=== PATIENT | female | born 1970 | race Caucasian/White ===

== ENCOUNTER 2023-05-09 07:31 | Outpatient (AMB) | payer BC, SELFPAY ==
--- NOTE | 2023-05-09 07:35 | A.OFFPC_ITS ---
Vital Signs 05/09/23 07:39 Height 5 ft 4 in Weight 136 lb BMI 23.3 BP 118/70 Blood Pressure Location Rt brachial Position Sitting Pulse 80 Pulse Source Pulse Oximeter Pulse Oximetry (%) 99 Oxygen Delivery Method Room Air Intake Visit Reasons: New patient-requesting physical Intake Note: pt is here for new patient appointment, requesting physical Harness Builder Required: No Accompanied by: Self / Same As Patient Allergies No Known Allergies Allergy (Verified 05/09/23 07:39) Medication List - Last Reconciled 05/09/23 by Mary Ann Lynch MD diosmin 1,000 mg PO Tobacco use date assessed: 05/09/23 Dental Screening Dental Screen Date: 05/09/23 Did you have a dental visit in the last 12 months?: Yes Did you have a dental problem in the last 6 months where you did not have access to dental care?: No Was dental information given to patient?: Patient has dentist HPI New patient-requesting physical HPI Details Pt presents for PE. 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 1. Little interest or pleasure in doing things: not at all 2. Feeling down, depressed, or hopeless: not at all 3. Trouble falling or staying asleep, or sleeping too much: not at all 4. Feeling tired or having little energy: not at all 5. Poor appetite or overeating: not at all 6. Feeling bad about yourself - or that you are a failure or have let yourself or your family down: not at all 7. Trouble concentrating on things, such as reading the newspaper or watching television: not at all 8. Moving or speaking so slowly that other people could have noticed. Or the opposite - being so fidgety or restless that you have been moving around a lot more than usual: not at all 9. Thoughts that you would be better off or of hurting yourself in some way: not at all Total score: 0 Depression Screening Interpretation: Negative Source: Developed by Drs. Triston Etienne, Kirk Betancourt and colleagues, with an educational chris from [employer]. Thrive Questionnaire Date Thrive assessed: 05/09/23 I am a: Patient What is your living situation today?: I have a steady place to live Within the past 12 months, did the food you bought not last and you didn't have the money to get more?: Never true Within the past 12 months, did you worry whether your food would run out before you got money to buy more?: Never true Do you have trouble paying for medicines?: No Do you have trouble getting transportation to medical appointments?: No Do you have trouble paying your heating and electricity bill?: No Do you have trouble taking care of your child, family member or friend?: No Do you have trouble with day-to-day activities such as bathing, preparing meals, shopping, managing finances, etc.?: No Are you currently unemployed and looking for a job?: No Are you interested in more education?: No Please select the resources that you would like help with: None Currently or been in a relationship where the following occur: no concerns reported CHLOÉ-7 AMB Questionnaire CHLOÉ-7 Date CHLOÉ - 7 assessed: 05/09/23 Source: Developed by Drs. Triston Etienne, Kirk Betancourt and colleagues, with an educational chris from [employer]. Review of Systems Const All systems reviewed & are unremarkable except as noted in HPI and below Reports no additional complaints ENT Reports no additional complaints Resp Reports no additional complaints GI Reports no additional complaints Reports no additional complaints Musc Reports no additional complaints Skin/Breast Reports system reviewed and no additional complaints, except as documented Physical exam (Primary Care) Vital Signs: Last Vital Signs Pulse 80 05/09/23 07:39 BP 118/70 05/09/23 07:39 Pulse Ox 99 05/09/23 07:39 Oxygen Delivery Method Room Air 05/09/23 07:39 BMI result Body Mass Index 23.3 Tobacco/Smoking Status: Tobacco use Status Tobacco use date assessed 05/09/23 05/09/23 07:44 Patient Tobacco Use Status Current everyday Tobacco 05/09/23 07:44 e-Cigarette/Vaping Use Never Used 05/09/23 07:44 Depression Screening Interpretation: Negative Thrive Assessment: Date of Thrive Assessment Date Thrive assessed 05/09/23 05/09/23 07:46 Currently or been in a relationship where the following occur: no concerns reported Const General: no acute distress HENMT Head: Yes normal to inspection Ears: hearing grossly normal bilaterally General nose exam: Normal external nose present Face and sinus: Yes normal facial exam Throat: Yes posterior oropharynx normal Eyes General: appearance normal, both eyes and all related structures Neck Neck: Yes no lymphadenopathy and Yes supple Resp Effort & Inspection: normal respiratory effort Auscultation: clear to auscultation bilaterally Cardio Rhythm: regular rhythm Heart sounds: S1 normal heart sound present and S2 normal heart sound present GI Inspection: Yes normal to inspection Palpation (GI): Soft to palpation Percussion: Yes normal to percussion Auscultation: normal bowel sounds External Female Exam: normal external appearance Speculum Exam - Vagina: normal appearance of the vagina Speculum Exam - Cervix: normal appearance of the cervix Bimanual exam- vagina & uterus: normal bimanual exam Assessment and Plan Assessment & Plan (1) Annual physical exam: Comment: 08/26 PPD, TOBACCO QUITTING DISCUSSED WITH THE PATIENT0 Code(s): Z00.00 - Encounter for general adult medical examination without abnormal findings Plan: Avoid NSAID regular physical activity discussed with the patient . for chronic lower extremity edema and heaviness due to venous insufficiency patient will try furosemide 20 mg as needed. She was advised to follow low sodium diet and wear compression knee-highs. Mammogram will be scheduled Pap smear was done today patient will be referred to GI for colonoscopy. She will have a fasting blood work today (2) Tobacco dependence: Code(s): F17.200 - Nicotine dependence, unspecified, uncomplicated Plan: Tobacco quitting discussed with the pt Orders: Orders TSH reflex Free T4 Today Z00.00 - Encounter for general adult medical examination without abnormal findings IRON PROFILE Today Z00.00 - Encounter for general adult medical examination without abnormal findings MM screening mammo BI Today Z00.00 - Encounter for general adult medical examination without abnormal findings, Z12.31 - Encounter for screening mammogram for malignant neoplasm of breast Comprehensive [place]. Panel Fast Today Z00.00 - Encounter for general adult medical examination without abnormal findings Complete Blood Count Auto Diff Today Z00.00 - Encounter for general adult medical examination without abnormal findings Lipid Panel Today Z00.00 - Encounter for general adult medical examination without abnormal findings Pap Smear Today Z00.00 - Encounter for general adult medical examination without abnormal findings Referrals Gastroenterology Referral F17.200 - Nicotine dependence, unspecified, uncomplicated, Z00.00 - Encounter for general adult medical examination without abnormal findings Medications: New furosemide (Lasix) 20 mg PO Q OTHER DAY 20 tabs 3RF Coding Level of Care Code New Pt Prev Care 40-64y(82336) Diagnoses Annual physical exam Z00.00 Tobacco dependence F17.200
[2023-05-09 07:39] VITALS: BP 118/70; PULSE 80; O2SAT 99; BMI 23.3
== END 2023-05-09 08:57 | disposition home or self-care (01) ==
PROVIDERS: Visit Provider Internal Medicine
DX: Z00.00 Encounter for general adult medical examination without abnormal findings (principal); F17.200 Nicotine dependence, unspecified, uncomplicated
CPT/HCPCS: 99386

== ENCOUNTER 2023-05-09 08:36 | Outpatient (REF) | payer BC, SELFPAY ==
[2023-05-14 07:28] LABS: HPV mRNA E6/E7 Not Detected (Not Detected)
== END 2023-05-09 08:37 | disposition home or self-care (01) ==
LOC: HO.LNP 08:36
PROVIDERS: Visit Provider Internal Medicine
DX: Z12.4 Encounter for screening for malignant neoplasm of cervix (principal); Z11.51 Encounter for screening for human papillomavirus (HPV)
CPT/HCPCS: 87624; 88142

== ENCOUNTER 2023-05-09 08:39 | Outpatient (REF) | payer BC, SELFPAY ==
[2023-05-09 11:18] LABS: MANUAL DIFF FLAG NO
[2023-05-09 11:39] LABS: Basophils Percent Auto 0.3 % (0-2); Eosinophils Absolute Auto 0.1 X10*3/uL (0.0-0.4); Eosinophils Percent Auto 1.1 % (0-4); Hematocrit 42.7 % (37.0-47.0); Hemoglobin 14.1 g/dl (12.0-16.0); Imm Gran Abs Auto 0.03 X10*3/uL (0.00-0.03); Imm Gran Pct Auto 0.4 % (0.0-0.4); Lymphocytes Absolute Auto 2.1 X10*3/uL (1.2-4.9); Lymphocytes Percent Auto 29.6 % (20-40); Mean Corpuscular Hemoglobin 32.9 pg (27.0-33.0); Mean Corpuscular Volume 99.5 fL (80.0-98.0); Mean Platelet Volume 11.1 fL (9.4-12.3); Monocytes Absolute Auto 0.5 X10*3/uL (0.1-1.2); Monocytes Percent Auto 6.8 % (2-11); Neutrophils Absolute Auto 4.4 x10*3/uL (2.0-8.3); Neutrophils Percent Auto 61.8 % (45-73); Platelet Count 285 X10*3/uL (160-400); Red Blood Count 4.29 X10*6/uL (4.20-5.50); Red Cell Distribution Width 12.4 % (11.0-16.0); White Blood Count 7.1 X10*3/uL (4.8-10.8)
[2023-05-09 14:20] LABS: Alanine Aminotransferase 13 U/L (0-31); Albumin Level 4.1 g/dL (3.5-5.0); Alkaline Phosphatase 78 U/L (39-117); Anion Gap 11 (12-20); Aspartate Amino Transferase 15 U/L (5-31); Bilirubin Total 0.2 mg/dL (0.0-1.0); Blood Urea Nitrogen 9 mg/dL (9-16); Calcium 9.7 mg/dL (8.4-10.2); Carbon Dioxide 26 mmol/L (22-29); Chloride 107 mmol/L (96-108); Cholesterol 185 mg/dL (<200); Estimated Glomerular Filt Rate > 60; Glucose Fasting 86 mg/dL (60-99); HDL Cholesterol 40 mg/dL (>40); Iron 49 mcg/dL (30-160); LDL Cholesterol Calculated 104 mg/dL (<100); Percent Iron Saturation 16 % (15-50); Potassium 4.7 mmol/L (3.3-5.1); Sodium 139 mmol/L (135-145); Total Iron Binding Capacity 300 mcg/dL (228-428); Total Protein 7.1 g/dL (6.5-8.0); Triglycerides 207 mg/dL (<150); Unsaturated Iron Binding 251 ug/dL
[2023-05-09 14:22] LABS: TSH reflex Free T4 1.46 uIU/mL (0.32-4.0)
== END 2023-05-09 08:40 | disposition home or self-care (01) ==
LOC: HO.HMGCLDS 08:39
PROVIDERS: PCP Internal Medicine; Visit Provider Internal Medicine
DX: Z00.00 Encounter for general adult medical examination without abnormal findings (principal)
CPT/HCPCS: 36415; 80053; 80061; 83540; 84443; 85025

== ENCOUNTER 2023-05-19 16:18 | Outpatient (REF) | payer BC, SELFPAY | END 2023-05-19 16:19 | disposition home or self-care (01) | LOC: HO.MAMMO 16:18 | PROVIDERS: PCP Internal Medicine; Visit Provider Internal Medicine | DX: Z12.31 Encounter for screening mammogram for malignant neoplasm of breast (principal) | CPT/HCPCS: 77063; 77067 ==

== ENCOUNTER → 2023-05-19 16:30 | Outpatient (BNV) | payer BC, SELFPAY | PROVIDERS: PCP Internal Medicine; Visit Provider Radiology Diagnostic Radiology | DX: Z12.31 Encounter for screening mammogram for malignant neoplasm of breast (principal) | CPT/HCPCS: 77063; 77067 ==

== ENCOUNTER → 2023-07-15 15:46 | Outpatient (BNVA) | payer BC, SELFPAY | PROVIDERS: PCP Internal Medicine; Visit Provider Nurse Practitioner Family ==

== ENCOUNTER → 2023-07-15 15:47 | Outpatient (AMB) | payer BC, SELFPAY ==
--- NOTE | 2023-07-15 15:58 | MHC.OFFVIS ---
Intake Vital Signs 07/15/23 16:02 Height 5 ft 4 in Weight 135 lb BMI 23.2 BP 116/67 Blood Pressure Location Lt brachial Position Sitting Pulse 79 Intake Visit Reasons: Colonoscopy Screening Intake Note: Patient presents to in office visit to in office visit today as a new patient for colonoscopy screening. CC: Patient reports she does not have BMs every day but she takes a laxative every Friday to empty her bowels. Patient also reports having a hemorrhoids since she gave her child. Denies other GI symptoms today. Allergies No Known Allergies Allergy (Verified 07/15/23 16:09) HPI Colonoscopy Screening HPI Details 52 year old? female here today for pre colonoscopy screening.? Patient was sent to us by her PCP.? ? Patient denies any gastrointestinal symptoms in the past or at present.? However patient does admit to have trouble with hemorrhoids and occasionally has blood after having a bowel movement. Patient reports that she occasionally will be constipated. Takes laxative on Friday to help her empty completely. Patient is on diosmin daily, should stop this as it can have affect on blood clotting. Patient is not on any other anticoagulate a beatty medication. Currently any using fluoroscopy might every other day to help with bilateral lower extremity edema. Denies any personal or family history of gastrointestinal disease, colon polyps, or cancer.? Denies history of difficulty with sedation or anesthesia in the past.? Negative for history of sleep apnea.? Denies any history of cardiac, renal, pulmonary, or hepatic disease.?? No history of infectious? diseases like hepatitis A, B, C, HIV or tuberculosis.? [facility] Surgical History History of bunionectomy Family History Father High blood pressure Constipation Mother Thyroid condition Maternal Uncle Lung cancer Maternal Aunt Cancer Social History Housing: House Alcohol intake: current Alcohol intake frequency: a few times a week Alcohol type: beer and wine Patient Tobacco Use Status: Current everyday Tobacco user Cigarettes Per Day: 10 e-Cigarette/Vaping Use: Never Used service: No Current occupational status: employed Current occupation: [employer] in [employer] Cognitive needs: No Hearing needs: No Vision needs: Yes Review of Systems Const Denies weight gain and Denies weight loss ENT Reports no additional complaints, Denies dysphagia and Denies odynophagia Card Reports no additional complaints Resp Reports no additional complaints GI Denies abdominal pain, Denies belching, Denies melena, Denies bloating, Reports hematochezia (Occasional after bowel movement), Reports constipation (Occasional), Denies dysphagia, Denies excessive flatus, Denies dyspepsia, Denies heartburn, Denies diarrhea, Denies loose stools, Denies nausea, Denies odynophagia and Denies vomiting Reports no additional complaints Musc Reports no additional complaints Neuro Reports no additional complaints Psych Reports no additional complaints Endo Reports no additional complaints Physical Exam Vital Signs: Last Vital Signs Pulse 79 07/15/23 16:02 BP 116/67 07/15/23 16:02 BMI result Body Mass Index 23.2 Const General: healthy appearing, no acute distress and well developed Nutritional Appearance: well nourished Orientation/consciousness: patient oriented x3 HEENT Head: Yes normal to inspection, Yes normocephalic and Yes atraumatic Face and sinus: Yes normal facial exam Mouth: Normal oral and palatal mucosa present Throat: Yes posterior oropharynx normal, Yes tonsils normal and Yes uvula midline Eyes General: appearance normal, both eyes and all related structures Neck Neck: Yes normal visual inspection, Yes full ROM and Yes trachea midline Thyroid: Thyroid normal Resp Effort & Inspection: normal respiratory effort, able to speak in complete sentences, no tracheal deviation and symmetric chest movement Auscultation: clear to auscultation bilaterally Cardio Rate: regular rate GI Inspection: Yes normal to inspection and No distended Palpation (GI): Soft to palpation, not firm, nontender and No hepatosplenomegaly present Auscultation: normal bowel sounds General: Yes no CVA tenderness Back/Spine/Pelvis Back: no CVA tenderness Skin General skin exam: elasticity normal, turgor normal and dry skin Neuro General: patient oriented x3 Psych Appearance: grossly normal Mental Status: mental status grossly normal Affect: normal affect Assessment & Plan Assessment & Plan (1) Bilateral lower extremity edema: Code(s): R60.0 - Localized edema (2) Screen for colon cancer: Code(s): Z12.11 - Encounter for screening for malignant neoplasm of colon (3) Hemorrhoid: Code(s): K64.9 - Unspecified hemorrhoids Qualifiers: Hemorrhoid type: unspecified Qualified Code(s): K64.9 - Unspecified hemorrhoids Plan Patient denies any GI, cardiac or respiratory symptoms.? Occasional trouble with her hemorrhoids diagnosed when she was . Will send script for Colace. Patient was encouraged to do Sitz baths Patient denies any other GI symptoms. Denies any cardiac or respiratory symptoms.? Denies any issues with anesthesia in the past.? Denies any history of sleep apnea.? No history infectious diseases in the past or present.? Not on any anticoagulation therapy, however patient is taking diosmin daily, can affect blood clotting and patient should stop it for 1 week before going for the procedure due to risk of bleeding. No family or personal history of colon cancer or polyps.? Patient denies melena, unintentional weight loss or ribbon like stools.? Discussed at length the pre-procedure,? prep, diet & medications as well as what to expect prior, during and after the procedure.?? Stressed the importance of good bowel prep.? Recommended the use of Vaseline or Calmoseptine OTC & baby wipes with bowel movements to promote comfort.? ?Patient verbalizes understanding and agrees to plan of care.? She was given the opportunity to ask questions and all questions answered. Orders: Referrals Vascular Surgery Referral R60.0 - Localized edema Medications: New docusate sodium 200 mg (2 x 100 mg) PO BEDTIME 180 caps 3RF K59.00 - Constipation, unspecified polyethylene glycol 3350 (Miralax) As directed by gastroenterology department at [facility] 238 grams PO ONCE 238 grams 0RF Z12.11 - Encounter for screening for malignant neoplasm of colon bisacodyl (Dulcolax (bisacodyl)) 10 mg (2 x 5 mg) PO BEDTIME 180 tabs 2RF Coding Level of Care Code New Pt Level 3 (17321) Diagnoses Bilateral lower extremity edema R60.0 Screen for colon cancer Z12.11 Hemorrhoids, unspecified hemorrhoid type K64.9 Hemorrhoid type: unspecified Time Spent (min) 40 Comment 30 minutes spent with patient and additional 10 minutes spent reviewing her records
[2023-07-15 16:02] VITALS: BP 116/67; PULSE 79; BMI 23.2
== END ==
PROVIDERS: PCP Internal Medicine; Visit Provider Nurse Practitioner Family
DX: R60.0 Localized edema (principal); Z12.11 Encounter for screening for malignant neoplasm of colon; K64.9 Unspecified hemorrhoids
CPT/HCPCS: 99203

== ENCOUNTER 2023-09-25 15:20 | Outpatient (AMB) | payer BC, SELFPAY ==
--- NOTE | 2023-09-25 15:22 | A.OFFVIS_ITS ---
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 Believes it may have been done at [facility]. 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 Complaints include pain over varicosities, swelling of lower extremities, cramping, fatigue, and heaviness of the lower extremities. 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 It is noted more so in right leg. Patient notes prior right lower extremity vein ablation done nearly 20 years ago. Patient denies any history of DVT/ PE. Patient denies any history of phlebitis. Trial of compression includes - [id number] They now present for vascular evaluation regarding their varicose veins. 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[place] Cognitive needs: No Hearing needs: No Vision needs: Yes Review of Systems Const Reports as per HPI ENT Reports no additional complaints Card Denies chest pain, Denies chest pain at rest and Denies chest pain with activity Resp Denies chest congestion and Denies cough GI Reports no additional complaints Musc Details: pain over varicosities, aching of lower extremities, swelling, cramping, heaviness and tiredness, itching Denies abnormal gait Skin/Breast Reports pruritus and Denies wounds Neuro Reports no additional complaints and Denies abnormal gait Psych Denies no additional complaints Physical Exam Vital Signs: BMI result Body Mass Index 23.2 Const General: cooperative, healthy appearing and comfortable Orientation/consciousness: oriented to person, oriented to place and oriented to time Neck Carotids: no bruits Chest Chest palpation & inspection: normal inspection of the chest and normal palpation of entire chest wall Resp Effort & Inspection: normal respiratory effort and able to speak in complete sentences Cardio Rate: regular rate Heart sounds: S1 normal heart sound present and S2 normal heart sound present Peripheral pulses: Peripheral pulses 2+ throughout GI Inspection: Yes normal to inspection Skin Other: +2 edema, right leg CEAP Classification C4 - skin color changes Ep - Etiology Primary As - superficial veins P - reflux General skin exam: dry skin Neuro General: oriented to person, oriented to place and oriented to time Extrem Right lower extremity: full ROM, normal capillary refill and edema Left lower extremity: full ROM, normal capillary refill and edema Psych Mental Status: mental status grossly normal Assessment & Plan Assessment & Plan (1) Varicose veins of right lower extremity with inflammation: Code(s): I83.11 - Varicose veins of right lower extremity with inflammation Plan: In short, the patient has evidence of venous insufficiency. I have discussed the pathophysiology with the patient. In addition I have provided informational material regarding venous disease to the patient. We have discussed conservative measures including compression, elevation, and exercise. I have also provided a handout regarding appropriate use of compression stockings and where to purchase good compression stockings as well. I have taken the liberty of ordering venous insufficiency testing with the patient. They will follow up with me after testing. The patient had an opportunity to ask questions regarding the treatment plan. All questions were answered. Imaging studies, laboratory studies and physical exam results were discussed and reviewed in detail. No major barriers to understanding were identified. The patient expressed understanding and agreement with the above treatment plan. The patient is aware they should contact our office by phone for worsening of the current condition or the appearance of new symptoms. Thank you for allowing me to participate in the [facility] care of this patient. If you have any questions or concerns regarding the treatment for the above condition please do not hesitate to contact me. The office telephone contact is [phone]. This note is constructed using voice recognition software. While every effort has been made to ensure accuracy, director on air errors may have been included. Thank you for allowing me to participate in the care of your patient. Yours sincerely, Ozzy Thomas MD, FACS, R.P.V.I. Orders: Orders US venous insuf bilat 1 Week I83.11 - Varicose veins of right lower extremity with inflammation Coding Level of Care Code New Pt Level 4 (72852) Diagnoses Varicose veins of right lower extremity with inflammation I83.11
[2023-09-25 15:23] VITALS: BMI 23.2
== END 2023-09-25 16:07 | disposition home or self-care (01) ==
PROVIDERS: PCP Internal Medicine; Visit Provider Surgery Vascular Surgery
DX: I83.11 Varicose veins of right lower extremity with inflammation (principal)
CPT/HCPCS: 99203

== ENCOUNTER → 2023-09-25 15:20 | Outpatient (BNVA) | payer BC, SELFPAY | PROVIDERS: PCP Internal Medicine; Visit Provider Surgery Vascular Surgery ==

== ENCOUNTER 2023-10-06 12:57 | Outpatient (REF) | payer BC, SELFPAY ==
--- NOTE | ~2023-10-06 | US_ITS ---
EXAMINATION: US LOWER EXTREMITY VENOUS (REFLUX EXAM), BILATERAL CLINICAL INDICATION: Varicose veins of the right lower extremity. Right great saphenous vein ablation over 20 years ago COMPARISON: None. TECHNIQUE: Color flow triplex imaging and compression Doppler was performed to evaluate both the deep and the superficial systems bilaterally. To evaluate the superficial system, the examination was performed in the upright position. Color-flow Doppler ultrasound and compression ultrasound were utilized. In addition, maneuvers were utilized to demonstrate reflux. FINDINGS: 1. DEEP VENOUS ULTRASOUND OF THE RIGHT LOWER EXTREMITY: Common Femoral Vein: Compressible, normal respiratory variation and augmented flow. Femoral Vein: Compressible, normal color flow and augmentation. Popliteal Vein: Compressible, normal augmentation. Deep Reflux: There is no evidence of reflux in the deep system in either the common femoral vein or the popliteal vein. There is no evidence of a Guerrero's cyst. 2. SUPERFICIAL ULTRASOUND WITH DOPPLER OF RIGHT LOWER EXTREMITY: GREAT SAPHENOUS VEIN: Saphenofemoral Junction: 0.4 cm; Reflux: 0 ms Proximal Thigh: 0.2 cm; Reflux: 0 ms Mid Thigh: Not visualized Above Knee: Not visualized At Knee: Not visualized Below Knee: 0.06 cm; Reflux: 0 ms Mid Calf: 0.3 cm; Reflux: 0 ms Ankle: 0.2 cm; Reflux: 0 ms DUPLICATED MEDIAL GREAT SAPHENOUS VEIN: Diameter: None Imaged Reflux: NA DUPLICATED LATERAL GREAT SAPHENOUS VEIN: Diameter: 0.2 cm Reflux: 0 ms SMALL SAPHENOUS VEIN: Proximal: 0.3 cm; Reflux: 0 ms Distal: 0.2 cm; Reflux: 0 ms VEIN OF GIACOMINI: None Imaged. PERFORATORS: Location: Right small saphenous vein distally Size: 0.2 cm Reflux: 0 ms Location: Right great saphenous vein proximal calf Size: 0.1 cm Reflux: 0 ms VARICOSITIES: Location: None Imaged Size: NA Reflux: NA 3. DEEP VENOUS ULTRASOUND OF THE LEFT LOWER EXTREMITY: Common Femoral Vein: Compressible, normal respiratory variation and augmented flow. Femoral Vein: Compressible, normal color flow and augmentation. Popliteal Vein: Compressible, normal augmentation. Deep Reflux: There is no evidence of reflux in the deep system in either the common femoral vein or the popliteal vein. There is no evidence of a Guerrero's cyst. 4. SUPERFICIAL ULTRASOUND WITH DOPPLER OF LEFT LOWER EXTREMITY: GREAT SAPHENOUS VEIN: Saphenofemoral Junction: 0.4 cm; Reflux: 0 ms Proximal Thigh: 0.5 cm; Reflux: 0 ms Mid Thigh: 0.2 cm; Reflux: 0 ms Above Knee: 0.2 cm; Reflux: 0 ms At Knee: 0.3 cm; Reflux: 0 ms Below Knee: 0.3 cm; Reflux: 0 ms Mid Calf: 0.2 cm; Reflux: 0 ms Ankle: 0.3 cm; Reflux: 0 ms DUPLICATED MEDIAL GREAT SAPHENOUS VEIN: Diameter: None Imaged Reflux: NA DUPLICATED LATERAL GREAT SAPHENOUS VEIN: Diameter: 0.1 Reflux: 0 ms SMALL SAPHENOUS VEIN: Proximal: 0.2 cm; Reflux: 0 ms Distal: 0.1 cm; Reflux: 0 ms VEIN OF GIACOMINI: None Imaged. PERFORATORS: Location: left great saphenous vein proximal calf Size: 0.2 cm Reflux: 0 ms VARICOSITIES: Location: None Imaged Size: NA Reflux: NA Lymph node seen in the right proximal thigh measuring 2 x 1.4 x 0.5 cm, likely reactive. US/US venous insuf bilat IMPRESSION: Right: The right great saphenous vein is not visualized from the mid-thigh to the knee. No reflux seen on the right. Left: The left great saphenous vein measures up to 0.5 cm, with no reflux.
== END 2023-10-06 12:58 | disposition home or self-care (01) ==
LOC: HO.US 12:57
PROVIDERS: PCP Internal Medicine; Visit Provider Surgery Vascular Surgery
DX: I83.11 Varicose veins of right lower extremity with inflammation (principal)
CPT/HCPCS: 93970

== ENCOUNTER 2023-11-11 15:20 | Outpatient (AMB) | payer BC, SELFPAY ==
[2023-11-11 15:26] VITALS: BMI 23.2
--- NOTE | 2023-11-11 15:26 | MHC.OFFVIS ---
Intake Vital Signs 11/11/23 15:26 Height 5 ft 4 in Weight 135 lb BMI 23.2 Intake Visit Reasons: Follow Up 10/06 US Intake Note: follow up US 10/06/23, pt states bilateral LE swelling for over 20 years and ? Hx of Right LE procedure, has heaviness and restlessness in bilat LE at night. no changes Allergies No Known Allergies Allergy (Verified 11/11/23 15:30) HPI Follow Up 10/06 US HPI Details Very pleasant 53-year-old female presents for follow-up regarding venous insufficiency. She does have swelling in her ankles. In addition she is concerned about her chronic constipation as well. Upon further discussion with her she reports at the age of 15 she had some sort of thyroid treatment with pills for approximately a year. After that she has had no other follow-up regarding this. She now presents for routine follow-up. 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[employer] Cognitive needs: No Hearing needs: No Vision needs: Yes Review of Systems Const All systems reviewed & are unremarkable except as noted in HPI and below Reports no additional complaints ENT Reports Normal hearing present Card Denies chest pain, Denies chest pain at rest, Denies chest pain with activity and Denies pedal edema Resp Denies cough GI Denies abdominal pain Musc Denies abnormal gait, Denies muscle cramps and Denies radiating pain into limb Skin/Breast Denies skin ulcer and Denies wounds Neuro Reports Normal hearing present and Denies abnormal gait Psych Reports no additional complaints Physical Exam Vital Signs: BMI result Body Mass Index 23.2 Const General: cooperative, healthy appearing and comfortable Orientation/consciousness: oriented to person, oriented to place and oriented to time HEENT Head: Yes normal to inspection Neck Neck: Yes normal visual inspection Carotids: no bruits Chest Chest palpation & inspection: normal inspection of the chest Resp Effort & Inspection: normal respiratory effort and able to speak in complete sentences Auscultation: clear to auscultation bilaterally, no crackles, no rales, no rhonchi and no wheezes Cardio Rate: regular rate Rhythm: regular rhythm Heart sounds: S1 normal heart sound present and S2 normal heart sound present Bruits: no carotid bruits Peripheral pulses: Peripheral pulses 2+ throughout GI Inspection: Yes normal to inspection Skin Wounds: no wounds Hair: normal Neuro General: oriented to person, oriented to place and oriented to time Cranial nerves: Yes CN's II-XII intact bilaterally and Yes Normal hearing present Cognition (Neuro): normal cognition Motor exam (neuro): 5/5 motor strength present throughout Extrem Other: venous exam: +2 edema General: No clubbing, No cyanosis and Yes edema Psych Appearance: grossly normal Mental Status: mental status grossly normal Speech and movement: Normal speech and movement present Results Reviewed Results Reviewed: Brief summary of venous insufficiency testing is as follows: right great saphenous vein: negative right small saphenous vein: negative right accessory vein: none present left great saphenous vein: negative left small saphenous vein: negative left accessory vein: none present Please note there is no evidence of any venous aneurysms or significant tortuosity Assessment & Plan Assessment & Plan (1) Leg swelling: Code(s): M79.89 - Other specified soft tissue disorders Plan: In short patient is negative for any significant venous insufficiency. I do believe some of this may be an element of routine swelling of age. She is quite concerned about this. It may be worthwhile to get her endocrine re-evaluation as she does have a very palpable thyroid. It does appear that her TSH from 05/09/2023 was normal at 1.46. Might be worthwhile for re-evaluation there. In addition she is scheduled for colonoscopy with GI. She will follow up with us on an as-needed basis. Thank you for allowing us to participate in her care. If there are any questions or concerns please do not hesitate to contact us. Coding Level of Care Code Est Pt Level 4 (87171) Diagnoses Leg swelling M79.89
== END 2023-11-11 16:35 | disposition home or self-care (01) ==
PROVIDERS: PCP Internal Medicine; Visit Provider Surgery Vascular Surgery
DX: M79.89 Other specified soft tissue disorders (principal)
CPT/HCPCS: 99213

== ENCOUNTER → 2023-11-11 15:20 | Outpatient (BNVA) | payer BC, SELFPAY | PROVIDERS: PCP Internal Medicine; Visit Provider Surgery Vascular Surgery ==

== ENCOUNTER 2023-11-27 07:38 | Day surgery (SDC) | payer BC, SELFPAY ==
--- NOTE | 2023-11-25 15:27 | P.CONAN_ITS ---
Documented by User: Angela Centeno NP 11/25/23 15:27 HPI - Anesthesia Eval Consult details Narrative: 53yo F for Colonoscopy [facility] Active Problems Active Problems: All Active Problems (Updated 11/11/23 @ 15:54 by Ozzy Thomas MD) Leg swelling (Acute) Varicose veins of right lower extremity with inflammation (Acute) Tobacco dependence (Acute) Annual physical exam (Acute) Past Medical History Medical History Smoker Family History Family History Father High blood pressure Constipation Mother Thyroid condition Maternal Uncle Lung cancer Maternal Aunt Cancer Surgical History Surgical History History of bunionectomy Social History Social History Housing: House Alcohol intake: current Alcohol intake frequency: a few times a week Alcohol type: beer and wine Patient Tobacco Use Status: Current everyday Tobacco user Tobacco use type: Cigarette Cigarettes Per Day: 10 Smoked in Last 30 Days: Yes e-Cigarette/Vaping Use: Never Used Patient Interested in Nicotine Replacement: No Are you DNR?: No Advance Directives: No Advance Directives Information Provided: Yes Nutrition Risks: No Nutritional Risk FDLMP: a few months ago service: No Current occupational status: employed 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[employer] Cognitive needs: No Hearing needs: No Vision needs: Yes Meds Allergies Allergy/AdvReac Type Severity Reaction Status Date / Time No Known Allergies Allergy Verified 11/27/23 07:55 Home Medications ?Medication ?Instructions ?Recorded ?Confirmed ?Last Taken ?Type diosmin 300 mg tablet 300 mg PO DAILY 07/15/23 11/27/23 Unknown History Assessment and Plan Assessment Anesthesia Assessment: Chart Reviewed Documented by User: Donald Stewart MD 11/27/23 08:29 PMF Past Medical History Medical History Smoker Family History Family History Father High blood pressure Constipation Mother Thyroid condition Maternal Uncle Lung cancer Maternal Aunt Cancer Family history of problems with anesthesia: No Surgical History Surgical History History of bunionectomy History of Problems with Anesthesia: No Social History Social History Housing: House Alcohol intake: current Alcohol intake frequency: a few times a week Alcohol type: beer and wine Patient Tobacco Use Status: Current everyday Tobacco user Tobacco use type: Cigarette Cigarettes Per Day: 10 Smoked in Last 30 Days: Yes e-Cigarette/Vaping Use: Never Used Patient Interested in Nicotine Replacement: No Are you DNR?: No Advance Directives: No Advance Directives Information Provided: Yes Nutrition Risks: No Nutritional Risk FDLMP: a few months ago service: No Current occupational status: employed 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 Discussed Final Anesthetic Review Family History of Problems with Anesthesia: No History of Problems with Anesthesia: No NPO: Yes ASA Class: II Final Preanesthetic Review: No Changes in Pt Med Stat, Meds/Allgs Chart Reviewed, Consent Obtained/Reviewed and Anes Risks/Benef Reviewed Patient Risk: Intermediate Procedure Risk: Intermediate Anesthetic Plan Anesthetic Plan: MAC: Disposition: Standard PACU
[2023-11-27 07:59] LABS: UPreg QC Valid YES; Urine Pregnancy NEGATIVE (NEGATIVE)
[2023-11-27] MEDS: Lactated Ringers 1,000 ML 100 ML IVCONT (08:02)
[2023-11-27 08:08] VITALS: BP 106/60; PULSE 82; RESP 18; TEMP 36.8; O2SAT 97; BMI 23.3
--- NOTE | 2023-11-27 08:52 | MHC.SHP ---
Pre-Procedural Eval Section A - 24 Hr Update-Section A only Date of Service: 11/27/23 Section B - Complete if H&P > 30 days Chief Complaint: Encounter for screening for malignant neoplasm of Details of Present Illness: History of bunionectomy Allergies: Allergies Allergy/AdvReac Type Severity Reaction Status Date / Time No Known Allergies Allergy Verified 11/27/23 07:55 Review of Systems Review of Systems Comment: Ten point ROS negative Exam Exam Comment: Gen appear: No acute distress HEENT: no icterus Chest: No overt resp distress Abd: soft, nontender, nondistended Psych: Stable affect, answering questions appropriately Neuro: A/Ox3 noted to move all extremities spontaneously Ext: no peripheral edema Plan Diagnosis/Plan: Unchanged I have reviewed the history and physical and performed a pertinent physical examination on my patient. No changes have occurred unless specified. Time Spent With Patient Time: Total time managing care of this patient today ____ minutes.
--- NOTE | 2023-11-27 09:04 | P.OP_ITS ---
Operative Note Operative Note Date of Service: 11/27/23 Narrative: Procedure: Colonoscopy Indication: Screening Endoscopist: Sherry Ford MD Anesthesia Provider: Helen Muñiz CRNA Anesthesia type: MAC Instrument: Olympus [id number]-[id number] Consent: Indication, risks vs benefits, and alternatives were discussed with the patient who gave written informed consent to proceed. EKG, pulse, pulse oximetry and blood pressure were monitored throughout the procedure. Please see anesthesia flowsheet. Procedure: The patient was brought to the procedure room and placed in the left lateral decubitus position. IV medications were administered by the anesthesia provider in attendance. A digital rectal exam was performed which was normal. A distal attachment cap was affixed to the tip of the scope. The colonoscope was then inserted through the anus and advanced through the colon to the cecum at 75 cm,and terminal ileum. Mucosa was carefully examined under high definition white light as the instrument was slowly withdrawn in a retrograde panoramic fashion. Retroflexion was performed in ascending colon and rectum. The procedure was not difficult. There were no immediate obvious complications. The quality of the prep was BBPS: 3+2+3 = adequate Withdrawal time 9 minutes. Limitations: No limitations. Findings: Mucosa: Normal to cecum and terminal ileum. Protruding lesions: * Small internal hemorrhoids without stigmata of recent bleeding. Impression: 1. Normal colon and terminal ileum mucosa 2. Internal hemorrhoids Recommendations: - Repeat colonoscopy in 10 years for asymptomatic colorectal screening.
[2023-11-27 09:31] VITALS: BP 103/55; PULSE 62; RESP 18; TEMP 36.2; O2SAT 99
[2023-11-27 09:46] VITALS: BP 100/64; PULSE 63; RESP 18; TEMP 36.1; O2SAT 99
== END 2023-11-27 10:59 | disposition home or self-care (01) ==
PROVIDERS: Anesthesiology; PCP Internal Medicine; Visit Provider Internal Medicine
PROC: 0DJD8ZZ Inspection of Lower Intestinal Tract, Via Natural or Artificial Opening Endoscopic (ICD-10-PCS; CPT 45378; principal; 2023-11-27 08:50)
DX: Z12.11 Encounter for screening for malignant neoplasm of colon (principal); K64.8 Other hemorrhoids
CPT/HCPCS: 45378; 81025; J2704

== ENCOUNTER → 2023-11-27 07:38 | Outpatient (BNV) | payer BC, SELFPAY | PROVIDERS: PCP Internal Medicine; Visit Provider Internal Medicine | DX: Z12.11 Encounter for screening for malignant neoplasm of colon (principal); K64.8 Other hemorrhoids | CPT/HCPCS: 45378 ==

== ENCOUNTER 2024-05-18 08:04 | Outpatient (AMB) | payer BC, SELFPAY ==
[2024-05-18 08:06] VITALS: BP 114/74; PULSE 88; O2SAT 98; BMI 24.0
--- NOTE | 2024-05-18 08:06 | A.OFFPC_ITS ---
Vital Signs 05/18/24 08:06 Height 5 ft 4 in Weight 140 lb BMI 24.0 BP 114/74 Blood Pressure Location Lt brachial Position Sitting Pulse 88 Pulse Source Pulse Oximeter Pulse Oximetry (%) 98 Oxygen Delivery Method Room Air Intake Visit Reasons: PE Intake Note: Pt is here today for PE. Pt has appt on Friday for mammogram. Allergies No Known Allergies Allergy (Verified 05/18/24 08:08) Tobacco use date assessed: 05/18/24 Dental Screening Dental Screen Date: 05/18/24 Did you have a dental visit in the last 12 months?: Yes Did you have a dental problem in the last 6 months where you did not have access to dental care?: No Was dental information given to patient?: Patient has dentist HPI PE HPI Details Patient presents for physical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 1. Little interest or pleasure in doing things: not at all 2. Feeling down, depressed, or hopeless: not at all 3. Trouble falling or staying asleep, or sleeping too much: not at all 4. Feeling tired or having little energy: not at all 5. Poor appetite or overeating: not at all 6. Feeling bad about yourself - or that you are a failure or have let yourself or your family down: not at all 7. Trouble concentrating on things, such as reading the newspaper or watching television: not at all 8. Moving or speaking so slowly that other people could have noticed. Or the opposite - being so fidgety or restless that you have been moving around a lot more than usual: not at all 9. Thoughts that you would be better off or of hurting yourself in some way: not at all Total score: 0 Depression Screening Interpretation: Negative Depression Screening Done: Yes 25006 - PHQ-9 Billing: Yes Source: Developed by Drs. Triston Etienne, Shanta Lopez, Kirk Potter and colleagues, with an educational chris from [employer]. Thrive Questionnaire Date Thrive assessed: 05/18/24 I am a: Patient What is your living situation today?: I have a steady place to live Within the past 12 months, did the food you bought not last and you didn't have the money to get more?: I choose not to answer this question Within the past 12 months, did you worry whether your food would run out before you got money to buy more?: I choose not to answer this question Do you have trouble paying for medicines?: No Do you have trouble getting transportation to medical appointments?: No Do you have trouble paying your heating and electricity bill?: I choose not to answer this question Do you have trouble taking care of your child, family member or friend?: I choose not to answer this question Do you have trouble with day-to-day activities such as bathing, preparing meals, shopping, managing finances, etc.?: No Are you currently unemployed and looking for a job?: I choose not to answer this question Are you interested in more education?: No Please select the resources that you would like help with: None Currently or been in a relationship where the following occur: I choose not to answer THRIVE Score: 0 AUDIT C Alcohol Use Questionnaire (AUDIT-C) 1. How often do you have a drink containing alcohol?: Monthly or less 2. How many drinks containing alcohol do you have on a typical day when you are drinking?: 3 or 4 3. How often do you have six or more drinks on one occasion?: Never Total Score: 2 CHLOÉ-7 AMB Questionnaire CHLOÉ-7 Date CHLOÉ - 7 assessed: 05/18/24 Feeling nervous, anxious, or on edge: 0 = Not at all Not being able to stop or control worryin = Not at all Worrying too much about different things: 0 = Not at all Trouble relaxin = Not at all Being so restless that it is hard to sit still: 0 = Not at all Becoming easily annoyed or irritable: 0 = Not at all Feeling afraid as if something awful might happen: 0 = Not at all Total CHLOÉ-7 score (0-4 normal; 5-9 mild; 10-14 moderate; 15-21 severe): 0 Source: Developed by Drs. Triston Etienne, Shanta Lopez, Kirk Potter and colleagues, with an educational chris from [employer]. CHLOÉ-7 Assessment Billing CHLOÉ-7 Assessment Tool: CHLOÉ-7 Assessment 60443 Review of Systems Const All systems reviewed & are unremarkable except as noted in HPI and below Eyes Reports no additional complaints ENT Reports no additional complaints Card Reports no additional complaints Resp Reports no additional complaints GI Reports no additional complaints Reports no additional complaints Musc Reports no additional complaints Physical exam (Primary Care) Vital Signs: Last Vital Signs Pulse 88 05/18/24 08:06 BP 114/74 05/18/24 08:06 Pulse Ox 98 05/18/24 08:06 Oxygen Delivery Method Room Air 05/18/24 08:06 BMI result Body Mass Index 24.0 Tobacco/Smoking Status: Tobacco use Status Tobacco use date assessed 05/18/24 05/18/24 08:12 Patient Tobacco Use Status Current everyday Tobacco 05/18/24 08:06 Tobacco use type Cigarette 05/18/24 08:06 e-Cigarette/Vaping Use Never Used 05/18/24 08:06 PHQ-9: PHQ-9 Score PHQ-9: Total score 0 05/18/24 08:12 Depression Screening Interpretation: Negative Thrive Assessment: Date of Thrive Assessment Date Thrive assessed 05/18/24 05/18/24 08:14 Currently or been in a relationship where the following occur: I choose not to answer Const General: no acute distress HENMT Head: Yes normal to inspection Ears: hearing grossly normal bilaterally Face and sinus: Yes normal facial exam Mouth: Normal oral and palatal mucosa present Throat: Yes posterior oropharynx normal Eyes General: appearance normal, both eyes and all related structures Neck Neck: Yes no lymphadenopathy and Yes supple Resp Effort & Inspection: normal respiratory effort Auscultation: clear to auscultation bilaterally Cardio Rhythm: regular rhythm Heart sounds: S1 normal heart sound present and S2 normal heart sound present GI Inspection: Yes normal to inspection Palpation (GI): Soft to palpation Percussion: Yes normal to percussion Auscultation: normal bowel sounds Assessment and Plan Assessment & Plan (1) Annual physical exam: Comment: 08/26 PPD, TOBACCO QUITTING DISCUSSED WITH THE PATIENT Code(s): Z00.00 - Encounter for general adult medical examination without abnormal findings Plan: Well-balanced diet regular physical activity discussed with the patient she will have a fasting blood work today. She is up-to-date with the mammogram Pap smear and colonoscopy (2) Tobacco dependence: Code(s): F17.200 - Nicotine dependence, unspecified, uncomplicated (3) Hx of colonoscopy: Comment: 11/2023 negative Code(s): Z98.890 - Other specified postprocedural states Plan: Tobacco quitting discussed with the patient (4) Normal pelvic exam: Comment: 12/2022 pap negative Code(s): Z01.419 - Encounter for gynecological examination (general) (routine) without abnormal findings (5) Hx of screening mammography: Comment: 11/2023 negative Code(s): Z92.89 - Personal history of other medical treatment Orders: Orders Comprehensive [place]. Panel Fast Today Z00.00 - Encounter for general adult me dical examination without abnormal findings Lipid Panel Today Z00.00 - Encounter for general adult medical examination without abnormal findings TSH reflex Free T4 Today Z00.00 - Encounter for general adult medical examination without abnormal findings Vitamin D 25-OH Total Today Z00.00 - Encounter for general adult medical examination without abnormal findings Complete Blood Count Auto Diff Today Z00.00 - Encounter for general adult medical examination without abnormal findings UA w Microscopic Today Z00.00 - Encounter for general adult medical examination without abnormal findings Coding Level of Care Code Est Pt Prev Care 40-64y(19312) Diagnoses Annual physical exam Z00.00 Tobacco dependence F17.200 Hx of colonoscopy Z98.890 Normal pelvic exam Z01.419 Hx of screening mammography Z92.89 Additional Codes CHLOÉ-7 Assessment Billing - CHLOÉ-7 Assessment Tool: CHLOÉ-7 Assessment 16210 ([id number])
== END 2024-05-18 08:54 | disposition home or self-care (01) ==
PROVIDERS: PCP Internal Medicine; Visit Provider Internal Medicine
DX: Z00.00 Encounter for general adult medical examination without abnormal findings (principal); F17.200 Nicotine dependence, unspecified, uncomplicated; Z98.890 Other specified postprocedural states; Z01.419 Encounter for gynecological examination (general) (routine) without abnormal findings; Z92.89 Personal history of other medical treatment

== ENCOUNTER → 2024-05-18 08:04 | Outpatient (BNVA) | payer BC, SELFPAY | PROVIDERS: PCP Internal Medicine; Visit Provider Internal Medicine | DX: Z00.00 Encounter for general adult medical examination without abnormal findings (principal) ==

== ENCOUNTER 2024-05-18 08:42 | Outpatient (REF) | payer BC, SELFPAY ==
[2024-05-18 10:15] LABS: MANUAL DIFF FLAG NO
[2024-05-18 10:18] LABS: Appearance Urine Clear; Basophils Percent Auto 0.3 % (0-2); Color Urine Yellow; Eosinophils Absolute Auto 0.1 X10*3/uL (0.0-0.4); Glucose Urine UA Negative (Negative); Hematocrit 42.7 % (37.0-47.0); Hemoglobin 14.4 g/dl (12.0-16.0); Imm Gran Abs Auto 0.02 X10*3/uL (0.00-0.03); Imm Gran Pct Auto 0.3 % (0.0-0.4); Leukocyte Esterase Urine Trace (Negative); Lymphocytes Absolute Auto 1.9 X10*3/uL (1.2-4.9); Lymphocytes Percent Auto 30.1 % (20-40); Mean Corpuscular HGB Conc 33.7 g/dl (31.0-35.0); Mean Corpuscular Hemoglobin 32.5 pg (27.0-33.0); Mean Corpuscular Volume 96.4 fL (80.0-98.0); Mean Platelet Volume 10.4 fL (9.4-12.3); Monocytes Absolute Auto 0.4 X10*3/uL (0.1-1.2); Monocytes Percent Auto 6.4 % (2-11); Neutrophils Absolute Auto 3.8 x10*3/uL (2.0-8.3); Neutrophils Percent Auto 61.9 % (45-73); Nitrite Urine Negative (Negative); PH 5.5 (5.0-9.0); Platelet Count 271 X10*3/uL (160-400); Red Blood Count 4.43 X10*6/uL (4.20-5.50); Red Cell Distribution Width 11.8 % (11.0-16.0); Specific Gravity - Urine <= 1.005 (1.005-1.025); UMIC TRIGGER UA YES; Urine Blood Negative (Negative); Urine Ketones Negative (Negative); Urine Protein Negative (Neg-Trace); White Blood Count 6.2 X10*3/uL (4.8-10.8)
[2024-05-18 10:25] LABS: Bacteria Urine Trace (None Seen); Hyaline Casts Urine 0-2 /LPF (0-2); RBC Urine 0-2 /HPF (0-2); WBC Urine 0-5 /HPF (0-5)
[2024-05-18 11:10] LABS: Alanine Aminotransferase 16 U/L (0-31); Albumin Level 4.2 g/dL (3.5-5.0); Alkaline Phosphatase 84 U/L (39-117); Anion Gap 8 (12-20); Aspartate Amino Transferase 17 U/L (5-31); Bilirubin Total 0.4 mg/dL (0.0-1.0); Blood Urea Nitrogen 16 mg/dL (9-16); Calcium 9.6 mg/dL (8.4-10.2); Carbon Dioxide 30 mmol/L (22-29); Chloride 106 mmol/L (96-108); Cholesterol 224 mg/dL (<200); Estimated Glomerular Filt Rate > 60; Glucose Fasting 93 mg/dL (60-99); HDL Cholesterol 43 mg/dL (>40); LDL Cholesterol Calculated 147 mg/dL (<100); Potassium 4.1 mmol/L (3.3-5.1); Sodium 140 mmol/L (135-145); Total Protein 7.4 g/dL (6.5-8.0); Triglycerides 173 mg/dL (<150)
[2024-05-18 11:12] LABS: TSH reflex Free T4 1.36 uIU/mL (0.32-4.0)
== END 2024-05-18 08:43 | disposition home or self-care (01) ==
LOC: HO.HMGCLDS 08:42
PROVIDERS: PCP Internal Medicine; Visit Provider Internal Medicine
DX: Z00.00 Encounter for general adult medical examination without abnormal findings (principal); F17.210 Nicotine dependence, cigarettes, uncomplicated; Z71.6 Tobacco abuse counseling
CPT/HCPCS: 36415; 80053; 80061; 81001; 82306; 84443; 85025; 96127

== ENCOUNTER 2024-05-21 07:42 | Outpatient (REF) | payer BC, SELFPAY ==
--- NOTE | ~2024-05-21 | MM_ITS ---
EXAMINATION: MM SCREENING DIGITAL BREAST TOMOSYNTHESIS, BILATERAL CLINICAL INFORMATION: Screening. Asymptomatic. No family history of breast CA and no prior surgeries reported per technologist note. COMPARISON: Mammography: 05/19/2023, 11/02/2016 TECHNIQUE: Digital breast tomosynthesis is performed in both the craniocaudal and mediolateral oblique views along with computer-aided detection (CAD). Synthesized 2D images are generated from the tomosynthesis. FINDINGS: The breasts are heterogeneously dense, which may obscure small masses (ACR BI-RADS breast composition Category c). Breast tissue is bordering an extremely dense. There is a 1 view asymmetry in the upper, posterior left breast localizing laterally on the tomographic images. Diagnostic views recommended. There is a focal asymmetry in the upper slightly inner left breast mid to posterior one third, for which diagnostic views are recommended. No suspicious findings in the right breast. MM/MM tomosynthesis screening BI IMPRESSION: 1. 1 view asymmetry in upper posterior left breast localizing laterally. Recommend diagnostic views to include 3-D spot compression views in the MLO projection, full field left mediolateral view, and a spot compression 3-D laterally exaggerated CC view if possible. Ultrasound may be required should the finding persist. 2. Focal asymmetry in the upper medial left breast, mid to posterior one third. Recommend diagnostic views to include 3-D spot compression views in the CC and MLO projections. Ultrasound may be required should the finding persists. ASSESSMENT: BI-RADS BI-RADS 0 - Incomplete: Needs additional Imaging. RECOMMENDATION: 1. Additional views of the left breast. 2. Targeted ultrasound if warranted after review of the additional views. 3. Radiology department staff will contact the patient for additional imaging. Additional Imaging required This examination should not preclude the clinical evaluation of a suspicious palpable abnormality. Electronically signed by: Jerry Hankins MD 05/24/2024 08:27 AM EDT
== END 2024-05-21 07:43 | disposition home or self-care (01) ==
LOC: HO.MAMMO 07:42
PROVIDERS: PCP Internal Medicine; Visit Provider Internal Medicine
DX: Z12.31 Encounter for screening mammogram for malignant neoplasm of breast (principal)
CPT/HCPCS: 77063; 77067

== ENCOUNTER → 2024-05-21 08:00 | Outpatient (BNV) | payer BC, SELFPAY | PROVIDERS: PCP Internal Medicine; Visit Provider Radiology Diagnostic Radiology | DX: Z12.31 Encounter for screening mammogram for malignant neoplasm of breast (principal) | CPT/HCPCS: 77063; 77067 ==

== ENCOUNTER 2024-07-08 14:00 | Outpatient (REF) | payer BC, SELFPAY ==
--- NOTE | ~2024-07-08 | MM_ITS ---
EXAMINATION: MM DIAGNOSTIC DIGITAL BREAST TOMOSYNTHESIS, LEFT US BREAST LIMITED, LEFT MAMMOGRAPHY: CLINICAL INFORMATION: Follow-up for focal asymmetry upper outer left breast middle one third. Follow-up for one view asymmetry far upper posterior left breast seen on MLO only on screening exam. COMPARISON: Screening mammography 05/21/2024, and exams 05/19/2023, 11/02/2016. TECHNIQUE: Digital left breast tomosynthesis is performed in the following views: Full field 3-D left mediolateral view, as well as 3-D spot compression left CC, left exaggerated lateral CC, and left MLO projections. Computer-aided diagnosis was used for this study. This was followed by targeted left breast ultrasound the upper outer quadrant. FINDINGS: The breasts are heterogeneously dense, which may obscure small masses (ACR BI-RADS breast composition Category c). One view asymmetry in the upper posterior left breast localizing laterally on the MLO tomographic images does not definitively persist on spot compression views and is consistent with normal overlapping fibroglandular tissues (summation artifact). In the middle depth of the upper outer left breast, there is a persistent 8 mm oval vague nodule, poorly circumscribed, with surrounding spiculation, suspicious. This will be evaluated with ultrasound. No additional suspicious findings. No abnormal axillary lymphadenopathy. ULTRASOUND: CLINICAL INFORMATION: As above, evaluate 8 mm oval vague nodule with surrounding spiculation seen upper outer left breast middle one third. COMPARISON: None relevant. TECHNIQUE: Targeted sonographic evaluation left breast was performed using a high frequency linear transducer. Attention was given to the upper outer quadrant in the region of mammographic concern. Selected archived documentation. FINDINGS: LEFT BREAST: Left breast targeted upper outer ultrasound demonstrates the presence of a poorly circumscribed, irregular, predominantly hypoechoic mixed echogenicity curvilinear lesion with mild surrounding echogenic changes, mild posterior acoustic attenuation, with a crescent shape measuring approximately 1.4 x 0.5 x 2.0 cm. This appears to most likely correlate with the mammographic focus of concern. Tissue sampling is warranted for more definitive characterization. Stereotactic left breast biopsy is recommended for definitive sampling of the mammographic index lesion. We can correlate with the ultrasound after clip placement and biopsy to ensure correlation. No abnormal lymph nodes left axilla. MM/MM tomosynthesis added views L IMPRESSION: -Indeterminant irregular spiculated mass measuring 2.0 cm in length, lentiform in shape on ultrasound, 11:00 axis left breast 7 cm from the nipple. This correlates well with the mammographic focus of concern. Recommend STEREOTACTIC GUIDED BIOPSY for definitive sampling. -No additional suspicious findings left breast. -Findings and recommendations were discussed with the patient via the technologist, who appears in understanding. OVERALL ASSESSMENT: Mammography: BI-RADS 4 - Suspicious finding Ultrasound: BI-RADS 4 - Suspicious finding RECOMMENDATION: Biopsy recommended This patient's information was entered into a reminder system with a target due date for their next mammogram. Electronically signed by: Jerry Hankins MD 07/08/2024 04:38 PM LEIGH MANN
== END 2024-07-08 14:01 | disposition home or self-care (01) ==
LOC: HO.MAMMO 14:00
PROVIDERS: PCP Internal Medicine; Visit Provider Internal Medicine
DX: N64.89 Other specified disorders of breast (principal)
CPT/HCPCS: 76642; 77061; 77065

== ENCOUNTER → 2024-07-08 14:30 | Outpatient (BNV) | payer BC, SELFPAY | PROVIDERS: PCP Internal Medicine; Visit Provider Radiology Diagnostic Radiology | DX: R92.8 Other abnormal and inconclusive findings on diagnostic imaging of breast (principal) | CPT/HCPCS: 76642; 77061; 77065 ==

== ENCOUNTER 2024-07-13 08:43 | Outpatient (AMB) | payer BC, SELFPAY ==
--- NOTE | 2024-07-13 08:59 | A.OFFVIS_ITS ---
Vital Signs 07/13/24 09:05 Height 5 ft 4 in Weight 140 lb BMI 24.0 BP 121/70 Blood Pressure Location Rt brachial Position Sitting Pulse 89 Intake Visit Reasons: (L) breast sterotactic BX 11:00 spiculated Intake Note: Patient referred for lt br stereotactic bx. Not able to feel lumps on breasts. Patient c/o: denies nipple discharge, rash, itch. No family hx of breast CA. MM& Lt br US: 07-08-2024. Padded Box Sewer Required: No Allergies No Known Allergies Allergy (Verified 07/13/24 09:04) HPI Comments Details: Patient presents for evaluation for a scheduled left stereotactic breast biopsy for a suspicious left breast lesion. Patient received annual breast exam and mammograms yearly. Her most recent 1 demonstrated a suspicious spiculated lesion at 11:00 o'clock position of the left breast. Patient was self has no breast issues or complaints. She denies any pain, discharge, mass, or skin changes. Family history negative breast cancer. Menstrual history Chart was reviewed and patient evaluated [facility] Medical History Smoker Surgical History History of bunionectomy Family History Father High blood pressure Constipation Mother Thyroid condition Maternal Uncle Lung cancer Maternal Aunt Cancer Social History Housing: House Alcohol intake: current Alcohol intake frequency: a few times a week Alcohol type: beer and wine Patient Tobacco Use Status: Current everyday Tobacco user Tobacco use type: Cigarette Cigarettes Per Day: 10 e-Cigarette/Vaping Use: Never Used service: No Current occupational status: employed 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 Chest Other: Chest breath sounds bilaterally. Breast exam demonstrates no obvious mass, discharge, adenopathy, or skin changes bilaterally. GI Other: Abdomen is soft, mildly corpulent, benign. No organomegaly Assessment & Plan Assessment & Plan (1) Left breast mass: Code(s): N63.20 - Unspecified lump in the left breast, unspecified quadrant Category: Surgical Plan: Patient was scheduled for stereotactic biopsy left breast mass for today. She will see me in 1 week's time for follow-up. All questions answered. Further interventions studies will be directed by the results of the previously mentioned procedure. Coding Level of Care Code New Pt Level 4 (61109) Diagnoses Left breast mass N63.20
[2024-07-13 09:05] VITALS: BP 121/70; PULSE 89; BMI 24.0
== END 2024-07-13 09:24 | disposition home or self-care (01) ==
PROVIDERS: PCP Internal Medicine; Visit Provider Surgery
DX: N63.20 Unspecified lump in the left breast, unspecified quadrant (principal)
CPT/HCPCS: 99204

== ENCOUNTER 2024-07-13 09:30 | Outpatient (REF) | payer BC, SELFPAY | END 2024-07-13 09:31 | disposition home or self-care (01) | LOC: HO.MAMMO 09:30 | PROVIDERS: PCP Internal Medicine; Visit Provider Surgery | DX: Z13.89 Encounter for screening for other disorder (principal) ==

== ENCOUNTER 2024-07-15 09:40 | Outpatient (REF) | payer BC, SELFPAY ==
--- NOTE | ~2024-07-15 | MM_ITS ---
EXAMINATION: STEREOTACTIC TOMOSYNTHESIS-GUIDED VACUUM-ASSISTED BREAST BIOPSY, LEFT SPECIMEN RADIOGRAPH, LEFT POST PROCEDURE DIGITAL MAMMOGRAM, LEFT CLINICAL INFORMATION: Suspicious area of architectural distortion 11:00 axis, posterior depth left breast, for stereotactic biopsy. COMPARISON: 07/08/2024, 05/21/2024, 05/19/2023, dating back to 2016. TECHNIQUE/PROCEDURE: Informed consent was obtained from the patient after discussion of the benefits, risks, and alternatives to biopsy today. Patient appeared to understand. Gave opportunity for questions. Patient signed consent form. BIOPSY TABLE: [employer] Prone Biopsy System. LESION: Area of architectural distortion 11:00 axis left breast. LOCAL ANESTHESIA: 2 mL 1% lidocaine; 7 mL 1% lidocaine with epinephrine. DERMATOTOMY: Single skin carey dermatotomy performed. NEEDLE: [employer] 9-gauge vacuum assisted core biopsy device. APPROACH: craniocaudal. TARGETING: Combination of digital breast tomosynthesis and stereotactic digital mammography used for targeting. CORES: 6. CLIP: Top hat shaped. SPECIMEN RADIOGRAPH: -Not performed. POST PROCEDURE UNILATERAL DIGITAL MAMMOGRAM: The post biopsy mammogram is performed in separate room using separate digital mammography equipment from the biopsy procedure. CC and ML views are obtained. The breasts are heterogeneously dense, which may obscure small masses (breast composition category: c). The clip marker is in accurate position. The distortion appears to have been sampled. No gross hematoma. The patient tolerated the procedure well. No immediate complications. Home instructions reviewed with the patient. Final pathology results are pending. MM/MM stereotactic biopsy LT IMPRESSION: 1. Digital tomosynthesis-guided core biopsy left breast with clip placement. 2. Post procedure mammogram shows satisfactory and accurate positioning of the biopsy clip. No complication. 3. Final pathology results pending. An addendum report will be issued. Electronically signed by: Jerry Hankins MD 07/15/2024 01:32 PM LEIGH
[2024-07-15] MEDS: Lidocaine HCl 1 % 20 ML VIAL 3 ML SUBCUT (11:11)
[2024-07-15] MEDS: Lidocaine HCl 1%/Epi 1:100,000 10 ML VIAL 16 ML SUBCUT (11:12)
[2024-07-15] MEDS: Sodium Bicarbonate 8.4% 50 MEQ/50 ML VIAL SUBCUT (11:13)
== END 2024-07-15 09:41 | disposition home or self-care (01) ==
LOC: HO.MAMMO 09:40
PROVIDERS: PCP Internal Medicine; Visit Provider Surgery
DX: N63.22 Unspecified lump in the left breast, upper inner quadrant (principal); N60.92 Unspecified benign mammary dysplasia of left breast
CPT/HCPCS: 19081; 88305; 88341; 88342; A4648; J2003; J2004

== ENCOUNTER → 2024-07-15 10:00 | Outpatient (BNV) | payer BC, SELFPAY | PROVIDERS: PCP Internal Medicine; Visit Provider Radiology Diagnostic Radiology | DX: N60.89 Other benign mammary dysplasias of unspecified breast (principal) | CPT/HCPCS: 19081; 77061; 77065 ==

== ENCOUNTER 2024-07-28 07:33 | Outpatient (AMB) | payer BC, SELFPAY ==
--- NOTE | 2024-07-28 07:37 | MHC.OFFVIS ---
Vital Signs 07/28/24 07:38 Height 5 ft 4 in Weight 140 lb BMI 24.0 BP 120/70 Blood Pressure Location Rt brachial Position Sitting Pulse 90 Intake Visit Reasons: 1 wk f u(L) breast sterotactic BX 11:00 spiculated Intake Note: Patient here to discuss Lt br st bx on 07-15-2024 results. Reports incision healing well. Patient c/o: bumpy along bx site. 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 She has minimal discomfort. Pathology is benign. 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[employer] Cognitive needs: No Hearing needs: No Vision needs: Yes Physical Exam Vital Signs: Last Vital Signs Pulse 90 07/28/24 07:38 BP 120/70 07/28/24 07:38 BMI result Body Mass Index 24.0 Chest Other: Biopsy site is healing uneventfully Assessment & Plan Assessment & Plan (1) Left breast mass: Code(s): N63.20 - Unspecified lump in the left breast, unspecified quadrant Category: Surgical (2) Status post left breast biopsy: Code(s): Z98.890 - Other specified postprocedural states Category: Medical Plan Current plan is for the patient to occasionally to monthly breast exams, and she will see me in 6 months time proceeded by postprocedure bilateral mammograms or p.r.n.. All questions answered. Coding Level of Care Code Est Pt Level 4 (83518) Diagnoses Left breast mass N63.20 Status post left breast biopsy Z98.890
[2024-07-28 07:38] VITALS: BP 120/70; PULSE 90; BMI 24.0
== END 2024-07-28 07:57 | disposition home or self-care (01) ==
PROVIDERS: PCP Internal Medicine; Visit Provider Surgery
DX: N63.20 Unspecified lump in the left breast, unspecified quadrant (principal); Z98.890 Other specified postprocedural states
CPT/HCPCS: 99214

== ENCOUNTER → 2024-07-28 07:33 | Outpatient (BNVA) | payer BC, SELFPAY | PROVIDERS: PCP Internal Medicine; Visit Provider Surgery ==

== ENCOUNTER 2024-11-10 07:39 | Outpatient (AMB) | payer BC, SELFPAY ==
--- NOTE | 2024-11-10 07:47 | MHC.OFFVIS ---
Vital Signs 11/10/24 07:50 Height 5 ft 4 in Weight 139 lb BMI 23.9 BP 129/67 Blood Pressure Location Lt brachial Position Sitting Pulse 78 Intake Visit Reasons: 3 month bx result Intake Note: Patient scheduled today's visit for 3m follow up Lt br st bx. Repots bx site healed well. Patient c/o: month ago with discomfort and burning sensation. Mammogram: 01-25-2025 [employer] Operation Required: No Accompanied by: Self / Same As Patient Allergies No Known Allergies Allergy (Verified 11/10/24 07:47) HPI Comments Details: Patient presents for follow-up status post left breast biopsy. Biopsy was were reviewed with the patient which demonstrates atypical ductal hyperplasia. We have reviewed these results and current recommendation with oncologic agreement is to perform lumpectomy. 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 Bilateral breast exam demonstrates no obvious mass, discharge, skin changes, or any periclavicular axillary or cervical adenopathy bilaterally. Biopsy site well healed roughly 11:00 o'clock left breast Assessment & Plan Assessment & Plan (1) Atypical ductal hyperplasia of left breast: Code(s): N60.92 - Unspecified benign mammary dysplasia of left breast Category: Surgical Plan Risks, benefits, alternatives of lumpectomy of atypical ductal hyperplasia left breast were reviewed with the patient and included but not limited to bleeding, infection, numbness, pain, scarring and the patient wishes to proceed. All questions answered. She will require a localizer placement beforehand by breast radiologist. Arrangements were made for this on a day which is convenient for her. Coding Level of Care Code Est Pt Level 5 (76224) Diagnoses Atypical ductal hyperplasia of left breast N60.92
[2024-11-10 07:50] VITALS: BP 129/67; PULSE 78; BMI 23.9
== END 2024-11-10 07:54 | disposition home or self-care (01) ==
LOC: HO.HGS 07:39
PROVIDERS: PCP Internal Medicine; Visit Provider Surgery
DX: N60.92 Unspecified benign mammary dysplasia of left breast (principal)
CPT/HCPCS: 99214

== ENCOUNTER → 2024-11-10 07:39 | Outpatient (BNVA) | payer BC, SELFPAY | PROVIDERS: PCP Internal Medicine; Visit Provider Surgery ==

== ENCOUNTER 2024-12-15 07:53 | Outpatient (REF) | payer BC, SELFPAY ==
--- NOTE | ~2024-12-15 | MM_ITS ---
EXAMINATION: MM MAMMOGRAM GUIDED RFID LOCALIZATION BREAST, LEFT CLINICAL INFORMATION: Left breast irritated core needle biopsy with pathology of atypical ductal hyperplasia. Here for localization COMPARISON: Priors on PACS. TECHNIQUE NEEDLE LOC: Proper informed consent is obtained from the patient after discussion of the procedure, potential risks and complications, and alternatives including declining the procedure today. Patient was given an opportunity for questions. The patient appeared to understand. The patient consented to the procedure and signed the consent form. GUIDANCE: Digital mammography. APPROACH: Cranio-caudal. TARGET: Top hat clip. ANESTHESIA: carbonated lidocaine 1%: 5 mL. LOCALIZATION SYSTEM: [employer]inder LOCallizer Wire-Free Guidance System with 12g needle applicator. RADIOFREQUENCY TAG: ID # [id number] RF Tag ID confirmed with LOCalizer Guidance System prior to placement. The skin is prepped and local anesthesia administered. The needle is positioned and RFID tag deployed. Final images demonstrate the LOCalizer RF tag to reside adjacent to the top hat clip The patient tolerated the procedure well and had no immediate complications. Dressing placed and home instructions reviewed. MM/MM RF Tag device LT IMPRESSION: -Status post left breast RFID localization. Area of asymmetry in the left low axilla only seen on previous imaging needs additional follouwp and imaging. Consider breast MRI for further evaluation. Discussed with Dr Recinos patients breast surgeon who agrees with Breast MRI at this time. Electronically signed by: Divya Ocasio DO 12/16/2024 01:00 PM EDT
[2024-12-15] MEDS: Sodium Bicarbonate 8.4% 50 MEQ/50 ML VIAL SUBCUT (08:40)
[2024-12-15] MEDS: Lidocaine HCl 1 % 20 ML VIAL 9 ML SUBCUT (08:41)
== END 2024-12-15 07:54 | disposition home or self-care (01) ==
LOC: HO.MAMMO 07:53
PROVIDERS: PCP Internal Medicine; Visit Provider Surgery
DX: N60.92 Unspecified benign mammary dysplasia of left breast (principal)
CPT/HCPCS: 19281; C1819; J2003

== ENCOUNTER → 2024-12-15 08:00 | Outpatient (BNV) | payer BC, SELFPAY | PROVIDERS: PCP Internal Medicine; Visit Provider Internal Medicine | DX: N60.82 Other benign mammary dysplasias of left breast (principal) | CPT/HCPCS: 19281 ==

== ENCOUNTER → 2024-12-20 14:49 | Outpatient (BNV) | payer BC, SELFPAY | PROVIDERS: PCP Internal Medicine; Visit Provider Internal Medicine | DX: N63.23 Unspecified lump in the left breast, lower outer quadrant (principal); N60.82 Other benign mammary dysplasias of left breast | CPT/HCPCS: 77049 ==

== ENCOUNTER 2024-12-20 14:50 | Outpatient (REF) | payer BC, SELFPAY ==
--- NOTE | ~2024-12-20 | MR_ITS ---
EXAMINATION: MR BREAST WITHOUT AND WITH CONTRAST, BILATERAL CLINICAL INFORMATION: Recently diagnosed left breast atypical ductal hyperplasia patient is scheduled for surgery. COMPARISON: Mammography and ultrasound dating back to April 2024. TECHNIQUE: MRI imaging of the breast was performed using T1-T2 and fat saturated techniques. Dynamic multiphase imaging was performed after the administration of intravenous gadolinium contrast agent. 3-D reconstruction was generated. FINDINGS: There is extreme fibroglandular breast tissue with marked background enhancement. LEFT BREAST: There is severe clip artifact in the upper central breast posterior depth from biopsy-proven atypical ductal hyperplasia this area represents the marker clip and the tag localization device. There are adjacent oval enhancing masses in the lower outer breast 3 to 4 cm from the nipple together measuring 9 x 4 mm. Series 1043 image 85/118. No other suspicious areas of enhancement allowing for the extreme signal artifact from the localizer device. No internal mammary or axillary adenopathy. RIGHT BREAST: There are 2 enhancing foci located superior breast posterior depth series 1043 image 73/118 measuring 5 mm and series 1043 image 66/118 measuring 5 mm. Otherwise there are no suspicious enhancing masses or areas of nonmass enhancement. No internal mammary or axillary adenopathy. Limited views of the chest and abdomen are unremarkable. MR/MR breast BI wo/w con IMPRESSION: Left: 1. Biopsied atypical ductal hyperplasia in the upper central left breast. Patient is scheduled for excision is under the care of a breast surgeon for further management. 2. Adjacent oval masses in the lower outer breast 3 to 4 cm from the nipple measuring up to 9 mm. Recommend MRI guided core needle biopsy at this time for confirmation. Right: 1. Two Enhancing foci posterior superior breast. Recommend six-month follow-up MRI for further evaluation of stability. ASSESSMENT: LEFT BREAST: BI-RADS 4 suspicious. Biopsy proven atypical ductal hyperplasia for which the patient is scheduled for surgery. Recommend six-month follow-up MRI after surgery for further evaluation bilateral areas of enhancement. RIGHT BREAST: BI-RADS 3 probably benign. RECOMMENDATIONS: Recommend six-month follow-up MRI after surgery of left breast ADH for further evaluation of bilateral enhancing areas. Electronically signed by: Divya Ocasio DO 12/21/2024 02:35 PM EDT
[2024-12-20] MEDS: gadobutroL 7.5 ML VIAL IVPUSH (15:56)
== END 2024-12-20 14:51 | disposition home or self-care (01) ==
LOC: HO.MRI 14:50
PROVIDERS: PCP Internal Medicine; Visit Provider Surgery
DX: N60.92 Unspecified benign mammary dysplasia of left breast (principal); R22.32 Localized swelling, mass and lump, left upper limb
CPT/HCPCS: 77049; A9585

== ENCOUNTER → 2025-01-20 08:29 | Outpatient (BNV) | payer BC, SELFPAY | PROVIDERS: PCP Internal Medicine; Visit Provider Internal Medicine | DX: D24.1 Benign neoplasm of right breast (principal); N60.22 Fibroadenosis of left breast | CPT/HCPCS: 19085; 77065 ==

== ENCOUNTER 2025-01-20 08:42 | Outpatient (REF) | payer BC, SELFPAY ==
--- NOTE | ~2025-01-20 | MR_ITS ---
EXAMINATION: MR GUIDED VACUUM-ASSISTED CORE BIOPSY BREAST, LEFT MM DIGITAL MAMMOGRAPHY POST BIOPSY, LEFT CLINICAL INFORMATION: Reason history of left breast atypical ductal hyperplasia the patient is under the care of a breast surgeon for excision and further management. Enhancing mass in the left breast lower outer quadrant on MRI.. COMPARISON: Prior imaging on PACS. TECHNIQUE/PROCEDURE: Informed consent was obtained from the patient after discussion of the benefits, risks, and alternatives to biopsy today. Patient appeared to understand. Gave opportunity for questions. Patient signed consent form. Biopsy is performed under MRI guidance using breast surface coil. Imaging is performed without and with use of Gadavist gadolinium contrast. Brighter [employer] introducer localization system is used with grid. LESION: Enhancing oval mass lower outer left breast.. LOCAL ANESTHESIA: 6 mL 1% lidocaine; 8 mL 1% lidocaine with epinephrine. NEEDLE: [employer] 9-gauge vacuum assisted core biopsy device. APPROACH: Lateral. CORES: 12. CLIP: TriMark cylinder shaped. POSTPROCEDURE UNILATERAL DIGITAL MAMMOGRAM: Mammography is performed using digital mammography in CC and MLO views. The breasts are heterogeneously dense, which may obscure small masses (ACR BI-RADS breast composition Category c). The clip marker is in position. No gross hematoma. The patient tolerated the procedure well. No immediate complications. Home instructions reviewed with the patient. Final pathology results are pending. MR/MR guided breast biopsy LT IMPRESSION: 1. Status post MRI guided vacuum-assisted core biopsy left breast with clip placement. 2. Final pathology results pending. An addendum report will be issued. Electronically signed by: Divya Ocasio DO 01/20/2025 01:33 PM EDT
[2025-01-20] MEDS: Sodium Bicarbonate 8.4% 50 MEQ in Dextrose 5 % 950 ML IV (10:38)
[2025-01-20] MEDS: gadobutroL 7.5 ML VIAL IVPUSH (10:39)
[2025-01-20] MEDS: Lidocaine HCl 1 % MPF 30 ML VIAL SUBCUT (10:41)
[2025-01-20] MEDS: Lidocaine HCl 1%/Epi 1:100,000 10 ML VIAL SUBCUT (10:42)
== END 2025-01-20 08:43 | disposition home or self-care (01) ==
LOC: HO.MRI 08:42
PROVIDERS: PCP Internal Medicine; Visit Provider Surgery
DX: N63.23 Unspecified lump in the left breast, lower outer quadrant (principal); Z85.3 Personal history of malignant neoplasm of breast
CPT/HCPCS: 19085; 77061; 77065; 88305; A4648; A9585; J2003; J2004

== ENCOUNTER 2025-02-21 14:37 | Outpatient (AMB) | payer BC, SELFPAY ==
--- NOTE | 2025-02-21 14:44 | MHC.OFFVIS ---
Vital Signs 02/21/25 14:53 Height 5 ft 4 in Weight 138 lb BMI 23.7 BP 120/61 Blood Pressure Location Lt brachial Position Sitting Pulse 73 Intake Visit Reasons: mri results Intake Note: Patient last seen by Dr. Recinos 11-10-2024. Patient here to discuss MRI 01-20-2025 results. 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 Recinos, here for follow-up for her atypical ductal hyperplasia of the left breast. She had undergone a screening mammogram last year showing this poorly circumscribed irregular bottom mentally hypoechoic curvilinear lesion at the upper mid part of the left breast measuring 1.4 x 0.5 x 2 cm. She underwent stereotactic biopsy for this and this showed atypical ductal hyperplasia. She was scheduled for lumpectomy by Dr. Recinos but the radiologist had recommended an MRI biopsy of a 2nd lesion on the same breast. She underwent this biopsy last Dec, 2024 and this turned out to be intraductal papilloma, with edematous changes without atypia. She is therefore here to schedule for a lumpectomy for the 1st lesion with the atypical ductal hyperplasia on the left breast She denies any palpable breast mass Her menarche was at the age of 13. Her 1st was the age of 29. She only had 1 . She denies any family history of breast cancer. 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[place] Cognitive needs: No Hearing needs: No Vision needs: Yes Review of Systems Const Denies chills and Denies fever(s) Card Denies chest pain, Denies dyspnea and Denies dyspnea on exertion Resp Denies cough, Denies dyspnea and Denies dyspnea on exertion GI Denies hematochezia and Denies change in bowel habits Denies hematuria Musc Denies back pain and Denies limited range of motion Neuro Denies focal weakness and Denies convulsions Psych Denies depression and Denies mood swings Physical Exam Vital Signs: Last Vital Signs Pulse 73 02/21/25 14:53 BP 120/61 02/21/25 14:53 BMI result Body Mass Index 23.7 Const General: comfortable and no acute distress Orientation/consciousness: patient oriented x3 Neck Neck: Yes no lymphadenopathy Chest Other: No palpable breast mass, no axillary lymphadenopathy Resp Auscultation: clear to auscultation bilaterally Cardio Rhythm: regular rhythm GI Palpation (GI): Soft to palpation, nontender and no guarding Neuro General: patient oriented x3 Assessment & Plan Assessment & Plan (1) Atypical ductal hyperplasia of breast: Code(s): N60.99 - Unspecified benign mammary dysplasia of unspecified breast Category: Medical Plan: In view of the atypical ductal hyperplasia on stereotactic biopsy of the he is on the upper part of the left breast, she had been recommended to undergo excision via lumpectomy with the Hologic localizer in view of the association with a high-grade lesions. I reviewed with her the technique of this procedure. I explained the risks including but not limited to bleeding, infections, hematoma, blood clots, as well as the benefits and alternatives. I explained to her what to expect postoperatively She says she understands and wants to proceed. The RF ID tag was already placed last 12/15/2024. The 2nd lesion on the left breast does not reveal any atypia so this will be followed mammographically. Coding Level of Care Code Est Pt Level 3 (21429) Diagnoses Atypical ductal hyperplasia of breast N60.99
[2025-02-21 14:53] VITALS: BP 120/61; PULSE 73; BMI 23.7
== END 2025-02-21 15:35 | disposition home or self-care (01) ==
LOC: HO.HGS 14:38
PROVIDERS: PCP Internal Medicine; Visit Provider Surgery
DX: N60.99 Unspecified benign mammary dysplasia of unspecified breast (principal)
CPT/HCPCS: 99213

== ENCOUNTER 2025-04-07 05:39 | Day surgery (SDC) | payer BC, SELFPAY ==
[2024-12-21 12:57] VITALS: BMI 24.0
--- NOTE | 2024-12-21 14:07 | P.CONAN_ITS ---
HPI - Anesthesia Eval Consult details Narrative: 54yo F for Left Breast Lumpectomy w/LOCalizer PMFSH Active Problems Active Problems: All Active Problems Mass of left axilla (Acute) Atypical ductal hyperplasia of left breast (Acute) Status post left breast biopsy (Acute) Left breast mass (Acute) Left breast mass (Acute) Hx of screening mammography (Acute) Normal pelvic exam (Acute) Hx of colonoscopy (Acute) Leg swelling (Acute) Varicose veins of right lower extremity with inflammation (Acute) Tobacco dependence (Acute) Annual physical exam (Acute) Past Medical History Medical History Smoker Family History Family History Father High blood pressure Constipation Mother Thyroid condition Maternal Uncle Lung cancer Maternal Aunt Cancer Family history of problems with anesthesia: No Surgical History Surgical History History of bunionectomy History of Problems with Anesthesia: No Social History Social History Housing: House Alcohol intake: current Alcohol intake frequency: a few times a week Alcohol type: beer and wine Patient Tobacco Use Status: Current everyday Tobacco user Tobacco use type: Cigarette Cigarettes Per Day: 10 e-Cigarette/Vaping Use: Never Used service: No Current occupational status: employed 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 Cognitive needs: No Hearing needs: No Vision needs: Yes Meds Allergies Allergy/AdvReac Type Severity Reaction Status Date / Time No Known Allergies Allergy Verified 11/10/24 07:47 Exam Height,Weight and Vital Signs: Height 5 ft 4 in Weight 63.503 kg Assessment and Plan Assessment Anesthesia Assessment: Chart Reviewed Final Anesthetic Review Family History of Problems with Anesthesia: No History of Problems with Anesthesia: No
--- NOTE | 2025-04-06 08:52 | HO.ANESPROP2 ---
Documented by User: Angela Centeno NP 04/06/25 08:53 HPI - Anesthesia Eval Consult details Narrative: 54yo F for Breast Lumpectomy w/LOCalizer PMFSH Active Problems Active Problems: All Active Problems Hyperlipidemia (Acute) Vitamin D deficiency (Acute) Atypical ductal hyperplasia of breast (Acute) Mass of left axilla (Acute) Atypical ductal hyperplasia of left breast (Acute) Status post left breast biopsy (Acute) Left breast mass (Acute) Left breast mass (Acute) Hx of screening mammography (Acute) Normal pelvic exam (Acute) Hx of colonoscopy (Acute) Leg swelling (Acute) Varicose veins of right lower extremity with inflammation (Acute) Tobacco dependence (Acute) Annual physical exam (Acute) Past Medical History Medical History Atypical ductal hyperplasia of breast Smoker Family History Family History Father High blood pressure Constipation Mother Thyroid condition Maternal Uncle Lung cancer Maternal Aunt Cancer Family history of problems with anesthesia: No Surgical History Surgical History History of bunionectomy History of Problems with Anesthesia: No Social History Social History Housing: House Alcohol intake: current Alcohol intake frequency: a few times a week Alcohol type: beer and wine Patient Tobacco Use Status: Current everyday Tobacco user Tobacco use type: Cigarette Cigarettes Per Day: 10 e-Cigarette/Vaping Use: Never Used Use of substances other than those prescribed or required for medical reasons: No Advance Directives: No Advance Directives Information Provided: Yes service: No Current occupational status: employed 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[employer] Cognitive needs: No Hearing needs: No Vision needs: Yes Meds Allergies Allergy/AdvReac Type Severity Reaction Status Date / Time No Known Allergies Allergy Verified 02/21/25 14:54 Home Medications ?Medication ?Instructions ?Recorded ?Confirmed ?Last Taken ?Type black cohosh root extract 160 mg 160 mg PO DAILY 02/21/25 02/21/25 Unknown History capsule cholecalciferol (vitamin D3) 25 25 mcg PO DAILY 02/21/25 02/21/25 Unknown History mcg (1,000 unit) capsule magnesium gluconate 27 mg 27 mg PO BID 02/21/25 02/21/25 Unknown History magnesium (500 mg) tablet (Mag-G) Exam Height,Weight and Vital Signs: Height 5 ft 4 in Weight 63.503 kg Assessment and Plan Assessment Anesthesia Assessment: Chart Reviewed Final Anesthetic Review Family History of Problems with Anesthesia: No History of Problems with Anesthesia: No Documented by User: Santos Oswald MD 04/07/25 07:10 [facility] Past Medical History Medical History Atypical ductal hyperplasia of breast Smoker Functional capacity: independent ambulation Family History Family History Father High blood pressure Constipation Mother Thyroid condition Maternal Uncle Lung cancer Maternal Aunt Cancer Surgical History Surgical History History of bunionectomy Social History Social History Housing: House Alcohol intake: current Alcohol intake frequency: a few times a week Alcohol type: beer and wine Patient Tobacco Use Status: Current everyday Tobacco user Tobacco use type: Cigarette Cigarettes Per Day: 10 e-Cigarette/Vaping Use: Never Used Use of substances other than those prescribed or required for medical reasons: No Advance Directives: No Advance Directives Information Provided: Yes service: No Current occupational status: employed 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[employer] Cognitive needs: No Hearing needs: No Vision needs: Yes Meds Allergies Allergy/AdvReac Type Severity Reaction Status Date / Time No Known Allergies Allergy Verified 02/21/25 14:54 Home Medications ?Medication ?Instructions ?Recorded ?Confirmed ?Last Taken ?Type black cohosh root extract 160 mg 160 mg PO DAILY 02/21/25 02/21/25 Unknown History capsule cholecalciferol (vitamin D3) 25 25 mcg PO DAILY 02/21/25 02/21/25 Unknown History mcg (1,000 unit) capsule magnesium gluconate 27 mg 27 mg PO BID 02/21/25 02/21/25 Unknown History magnesium (500 mg) tablet (Mag-G) Exam Exam Date and Time: 04/07/25 Airway Mallampati Class: II TM Dist: >3cm Neck ROM: Full 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 Discussed Final Anesthetic Review NPO: Yes ASA Class: II Final Preanesthetic Review: No Changes in Pt Med Stat, Meds/Allgs Chart Reviewed, Consent Obtained/Reviewed and Anes Risks/Benef Reviewed Patient Risk: Low Procedure Risk: Low Anesthetic Plan Anesthetic Plan: GA Disposition: Standard PACU
[2025-04-07] VITALS (7 sets, daily range): BP systolic 108–129; BP diastolic 62–74; PULSE 46–66; RESP 12–16; TEMP 36.1–36.2; O2SAT 97–100; BMI 23.4
--- NOTE | ~2025-04-07 | MM_ITS ---
Single left specimen radiograph demonstrates the tag and the marker clip within the specimen. Electronically signed by: Divya Ocasio DO 04/07/2025 08:03 AM EDT
[2025-04-07] MEDS: Lactated Ringers 1,000 ML 100 ML IVCONT (06:26)
[2025-04-07 06:42] LABS: UPreg QC Valid YES
--- NOTE | 2025-04-07 07:19 | MHC.SHP ---
Pre-Procedural Eval Section A - 24 Hr Update-Section A only Date of Service: 04/07/25 Section B - Complete if H&P > 30 days Chief Complaint: Unspecified benign mammary dysplasia of left breas Details of Present Illness: Atypical ductal hyperplasia, for surgical excision Relevant Family History (Specify if Yes): No Relevant Social History: None Present Medications: see Short Stay Collaborative assessment History of Previous Operations: Relevant previous surgery/procedure and date(s) Allergies: Allergies Allergy/AdvReac Type Severity Reaction Status Date / Time No Known Allergies Allergy Verified 02/21/25 14:54 Review of Systems Sugical H&P ROS: Negative: Constitution, Cardiovascular and Respiratory Exam Surgical H&P Exam: Normal: Heart, Normal: Lungs and Normal: Extremities Exam Comment: No palpable breast mass Plan I have reviewed the history and physical and performed a pertinent physical examination on my patient. No changes have occurred unless specified. Time Spent With Patient Time: Total time managing care of this patient today ____ minutes.
--- NOTE | 2025-04-07 08:04 | W.PM.OPN ---
Operative Note Operative Note Date of Service: 04/07/25 Narrative: Preop diagnosis: Atypical ductal hyperplasia left breast Postop diagnosis: The same Procedure: Lumpectomy, left breast with the Hologic localizer Surgeon: Irving Corrigan MD architectural administrative assistant: JULEE Martin The patient is a 54-year-old female with note of atypical ductal hyperplasia on the left breast on up previous biopsy. She is here for lumpectomy with Hologic localizer. She understood the technique of the planned procedure as well as the risks, benefits, and alternatives She aware that she has a 2nd lesion in the lower part of the left breast away from this area that isn't intraductal papilloma and she may benefit from incision and this as well. However, she has a follow up imaging study in 6 months for both breasts so she would like to have this imaging study goes before proceeding with a lumpectomy for the 2nd lesion She was brought to the operating room. She was placed supine under general anesthesia via laryngeal mask airway. The left breast was prepped and draped in the usual sterile fashion. A surgical time-out was done. The patient received cefazolin 2 g IV preoperatively I used the Hologic localizer to identify the area on the skin closed this to the RF ID tag. I marked this and infiltrated this with lidocaine 1%. I made an incision transversely with a blade 15 on this area. I then proceeded to divide through the full-thickness of the skin and subcutaneous fat into the breast tissue. I then used the curved Leblanc scissors to divide the breast tissue surrounding the RF ID tag. We frequently and periodically used the Hologic localizer to identify the location of the tag. We dissected circumferentially making sure that we had the tag in place. This was completely excised. A re-ray in the OR showed that both the tag in the biopsy clips were in the lumpectomy specimen. I had had marked the superior and lateral margins of the specimen with sutures for orientation. I then proceeded to observed for hemostasis. I used electrocautery for oozing areas with the lumpectomy site. There were no palpable lesions Once hemostasis was confirmed, I irrigated. I closed the breast tissue with Polysorb 3-0 simple interrupted sutures. Skin closure was achieved with Polysorb 4-0 subcuticular running sutures The incision was infiltrated with Marcaine 0.5% for postop analgesia. Dressings were applied and the procedure was completed The patient tolerated the procedure well. There were no immediate complications. Initial and final counts of sponges and instruments were correct. Estimated blood loss about 25 cc. The patient is extubated without difficulty and transferred to the recovery room with stable vital signs. I had gone down to the pathology lab to review the specimen but the staff were not around yet. Since the biopsy was benign, I decided to terminate the procedure and wait for the full path report.
== END 2025-04-07 09:43 | disposition home or self-care (01) ==
PROVIDERS: Anesthesiology; PCP Internal Medicine; Visit Provider Surgery
PROC: (CPT 19301; principal; 2025-04-07 07:30)
DX: N60.82 Other benign mammary dysplasias of left breast (principal); N62 Hypertrophy of breast; N60.22 Fibroadenosis of left breast; N60.42 Mammary duct ectasia of left breast; F17.210 Nicotine dependence, cigarettes, uncomplicated
CPT/HCPCS: 19301; 81025; 88307; J0131; J0690; J1100; J2003; J2250; J2405; J2704; J2795; J3010

== ENCOUNTER → 2025-04-07 05:39 | Outpatient (BNV) | payer BC, SELFPAY | PROVIDERS: PCP Internal Medicine; Visit Provider Surgery | DX: N60.82 Other benign mammary dysplasias of left breast (principal) | CPT/HCPCS: 19301 ==

== ENCOUNTER 2025-04-20 09:20 | Outpatient (AMB) | payer BC, SELFPAY ==
--- NOTE | 2025-04-20 09:35 | MHC.OFFVIS ---
Vital Signs 04/20/25 09:40 Weight 138 lb BP 123/71 Blood Pressure Location Rt brachial Position Sitting Pulse 73 Intake Visit Reasons: S/P Lt brst lumpectomy w/localizer Intake Note: Patient here s/p Lt breast lumpectomy w/localizer on 04-07-2025. Patient c/o: underneath incision feels bumpy. no longer taking rx pain meds. Reports incision healing well. Quality Head Required: No Accompanied by: Self / Same As Patient Allergies No Known Allergies Allergy (Verified 04/20/25 09:40) Medication List - Last Reconciled 04/20/25 by Irving Corrigan MD black cohosh root extract 160 mg PO DAILY cholecalciferol (vitamin D3) 25 mcg PO DAILY furosemide (Lasix) 20 mg PO Q OTHER DAY ibuprofen 600 mg PO Q6H PRN magnesium gluconate (Mag-G) 27 mg PO BID HPI HPI S/P Lt brst lumpectomy w/localizer: Details: She underwent left breast lumpectomy with the Hologic localizer last 04/07/2025 for atypical ductal hyperplasia. She is doing very well currently and denies any problems with her lumpectomy site. She says she does not take pain medications anymore She feels well overall. 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[place] Cognitive needs: No Hearing needs: No Vision needs: Yes Review of Systems Const Denies chills and Denies fever(s) Card Denies chest pain, Denies dyspnea and Denies dyspnea on exertion Resp Denies cough, Denies dyspnea and Denies dyspnea on exertion GI Denies hematochezia and Denies change in bowel habits Denies hematuria Musc Denies back pain and Denies limited range of motion Neuro Denies focal weakness and Denies convulsions Psych Denies depression and Denies mood swings Physical Exam Vital Signs: Last Vital Signs Pulse 73 04/20/25 09:40 BP 123/71 04/20/25 09:40 Const General: comfortable and no acute distress Chest Other: Lumpectomy site, left breast well healed, no hematoma, no evidence of infection Assessment & Plan Assessment & Plan (1) Atypical ductal hyperplasia of left breast: Code(s): N60.92 - Unspecified benign mammary dysplasia of left breast Category: Surgical Plan: Status post lumpectomy. Her final path report shows radial sclerosing lesion, moderate usual ductal hyperplasia, apocrine metaplasia duct ectasia. There was note of a small intraductal papilloma. There is no atypia or high-grade lesions. I explained to her the benign nature left final pathology. Her incision is well healed She understands that she also has a 2nd area of enhancing mass on the lower aspect of the left breast on MRI. This has been biopsied previously and this showed intraductal papilloma. I explained to her that at some point, this may need to be surgically excised as well. However, she also has enhancing foci on the right breast and a follow up MRI had been recommended for this. I am going to wait for the MRI for the right breast and decide on timing over excision for the intraductal papilloma on the left breast I will see her next month and schedule her for her follow up MRI. She understands the plan well and is comfortable with this. Coding Level of Care Code Global (49764) Diagnoses Atypical ductal hyperplasia of left breast N60.92
[2025-04-20 09:40] VITALS: BP 123/71; PULSE 73
== END 2025-04-20 09:55 | disposition home or self-care (01) ==
LOC: HO.HGS 09:21
PROVIDERS: PCP Internal Medicine; Visit Provider Surgery
DX: N60.92 Unspecified benign mammary dysplasia of left breast (principal)
CPT/HCPCS: 99024

== ENCOUNTER 2025-05-21 08:15 | Outpatient (REF) | payer BC, SELFPAY ==
--- OUTSIDE RECORDS SUMMARY | 2025-05-21 08:20 | XMS_ITS | Clinical Summary ---
Author Organization [facility] Address [address] [place] [address] [place] [id number] Phone Care Team Providers Care Child Care Provider Name Role Phone Mary Ann Lynch MD Primary Care Provider [phone] Social History Tobacco Use Types Packs/Day Years Used Date Smoking Tobacco: Never Assessed Education Answer Date Recorded Are you interested in more education? Not on sukhdeep e 05/20/2025 Are you concerned about learning? Not on file 05/20/2025 No 05/20/2025 No 05/20/2025 Digital Access Answer Date Recorded No 05/20/2025 No 05/20/2025 Reliable internet access at home? Not on file 05/20/2025 Device with a working camera? Not on file Comments Unknown Sex and Gender Information Value Date Recorded Sex Assigned at Not on file Legal Sex Female 10:43 AM EDT Gender Identity Not on file Sexual Orientation Not on file Plan of Treatment Upcoming Encounters Date Type Department Care Team (Late st Contact Info) Description 07/07/2025 4:10 PM EST Office Visit [facility] [address] [place] [address] [place] [address] Carlitos Romo MD [address] [facility], [address] [place] [address] [email or web address] Due Date Last Done Comments Adult Td,Tdap Booster 1971 LIPID PANEL 1971 DEPRESSION SCREENING 1983 SMOKING Hx and SMOKELESS TOB ACCO SCREENING 1984 HEPATITIS C SCREENING 1989 HIV ONE-TIME SCREENING (18-6 5 YEARS) 1989 PAP SMEAR 1992 MAMMOGRAM 2011 COLOGUARD 2016 COLONOSCOPY 2016 COLORECTAL CANCER SCREENING 2016 FIT TEST 2016 FOBT 2016 SIGMOIDOSCOPY 2016 VIRTUAL COLONOSCOPY 2016 PNEUMOCOCCAL VACCINES (50+ y ears) (1 of 1 - PCV) 2021 ZOSTER VACCINES (1 of 2) 2021 INFLUENZA VACCINE (#1) 2025 COVID-19 VACCINE ( - 2023-2 5 season) 2025 HEPATITIS A VACCINES Aged Out No long er eligible based on patient's age to complete this topic HIB VACCINES Aged Out No longer eligi ble based on patient's age to complete this topic MENINGOCOCCAL VACCINES (ACWY) Aged Out No longer eligible based on patient's age to complete this topic MENINGOCOCCAL VACCINES (B) Aged Out N o longer eligible based on patient's age to complete this topic Medical Devices Not on file Insurance [facility] PPO Care Teams Child Care Provider Relationship Specialty Start Date End Date Mary Ann Lynch MD [facility] [place] [address] PCP - General Internal Medicine 05/20/25 Additional Source Comments The information contained in this document represents components of the legal health record. It is not the complete legal health record.[facility]
[2025-05-21 11:10] LABS: MANUAL DIFF FLAG NO
[2025-05-21 11:16] LABS: Hematocrit 40.2 % (37.0-47.0); Hemoglobin 13.9 g/dl (12.0-16.0); Imm Gran Abs Auto 0.03 X10*3/uL (0.00-0.03); Imm Gran Pct Auto 0.3 % (0.0-0.4); Lymphocytes Absolute Auto 2.4 X10*3/uL (1.2-4.9); Mean Corpuscular HGB Conc 34.6 g/dl (31.0-35.0); Mean Corpuscular Hemoglobin 32.9 pg (27.0-33.0); Mean Corpuscular Volume 95.3 fL (80.0-98.0); NRBC Abs Auto 0.000 X10*3/uL (0.0-0.012); NRBC Pct Auto 0.0 /100WBC (0.0-0.2); Platelet Count 307 X10*3/uL (160-400); Red Blood Count 4.22 X10*6/uL (4.20-5.50); White Blood Count 8.7 X10*3/uL (4.8-10.8)
[2025-05-21 11:40] LABS: Appearance Urine Clear; Glucose Urine UA Negative (Negative); PH 7.5 (5.0-9.0); Specific Gravity - Urine 1.020 (1.005-1.025); UMIC TRIGGER UA YES
[2025-05-21 11:49] LABS: Alanine Aminotransferase 22 U/L (0-31); Albumin Level 4.0 g/dL (3.5-5.0); Alkaline Phosphatase 89 U/L (39-117); Anion Gap 11 (12-20); Aspartate Amino Transferase 27 U/L (5-31); Blood Urea Nitrogen 13 mg/dL (9-16); Calcium 9.4 mg/dL (8.4-10.2); Carbon Dioxide 28 mmol/L (22-29); Chloride 104 mmol/L (96-108); Cholesterol 205 mg/dL (<200); Estimated Glomerular Filt Rate > 60; HDL Cholesterol 41 mg/dL (>40); Potassium 4.4 mmol/L (3.3-5.1); Sodium 139 mmol/L (135-145); Total Protein 6.8 g/dL (6.5-8.0); Triglycerides 120 mg/dL (<150)
[2025-05-21 12:00] LABS: Folate 7.0 ng/mL (> or = 4.0); Vitamin B12 345 pg/mL (200-900)
== END 2025-05-21 08:16 | disposition home or self-care (01) ==
LOC: HO.HMGCLDS 08:15
PROVIDERS: PCP Internal Medicine; Visit Provider Internal Medicine
DX: Z00.00 Encounter for general adult medical examination without abnormal findings (principal); E55.9 Vitamin D deficiency, unspecified; E78.5 Hyperlipidemia, unspecified
CPT/HCPCS: 36415; 80053; 80061; 81001; 82306; 82607; 82746; 84443; 85025

== ENCOUNTER 2025-05-24 13:51 | Outpatient (AMB) | payer BC, SELFPAY ==
[2025-05-24 14:19] VITALS: BP 110/68; PULSE 97; RESP 17; TEMP 36.8; O2SAT 97; BMI 24.5
--- NOTE | 2025-05-24 14:19 | A.OFFPC_ITS ---
Vital Signs 05/24/25 14:19 Height 5 ft 4 in Weight 143 lb BMI 24.5 BP 110/68 Blood Pressure Location Lt brachial Position Sitting Respiration 17 Pulse 97 Pulse Source Pulse Oximeter Temp 98.3 F Temp Source Oral Pulse Oximetry (%) 97 Oxygen Delivery Method Room Air Intake Visit Reasons: PE Intake Note: Pt is here today for PE. Allergies No Known Allergies Allergy (Verified 04/20/25 09:40) Medication List - Last Reconciled 05/24/25 by Mary Ann Lynch MD black cohosh root extract 160 mg PO DAILY cholecalciferol (vitamin D3) 25 mcg PO DAILY furosemide (Lasix) 20 mg PO .QD ibuprofen 600 mg PO Q6H PRN magnesium gluconate (Mag-G) 27 mg PO BID varenicline tartrate (Chantix Continuing Month Box) 1 mg PO BID varenicline tartrate (Chantix Starting Month Box) PO PER PKG DIR Tobacco use date assessed: 05/24/25 Dental Screening Dental Screen Date: 05/24/25 Did you have a dental visit in the last 12 months?: Yes Did you have a dental problem in the last 6 months where you did not have access to dental care?: No Was dental information given to patient?: Patient has dentist HPI PE HPI Details Pt presents for PE. Patient complains of worsening of chronic lower extremities swelling at the end of the day. 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 She denies chest pain shortness or breath GI complains. Patient has been taking furosemide once or twice a month. 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 Surgical History (Updated 05/24/25 @ 19:13 by Mary Ann Lynch MD) Atypical ductal hyperplasia of left breast Hx of colonoscopy History of lumpectomy (~04/07/25) History of bunionectomy Family History Father High blood pressure Constipation Mother Thyroid condition Maternal Uncle Lung cancer Maternal Aunt Cancer Social History Housing: House Alcohol intake: current Alcohol intake frequency: a few times a week Alcohol type: beer and wine Patient Tobacco Use Status: Current everyday Tobacco user Tobacco use type: Cigarette Cigarettes Per Day: 10 e-Cigarette/Vaping Use: Never Used service: No Current occupational status: employed Current occupation: [employer] in [employer] Cognitive needs: No Hearing needs: No Vision needs: Yes Questionnaire PHQ-9 Over the last 2 weeks, how often have you been bothered by any of the following problems? 1. Little interest or pleasure in doing things: not at all 2. Feeling down, depressed, or hopeless: not at all 3. Trouble falling or staying asleep, or sleeping too much: not at all 4. Feeling tired or having little energy: not at all 5. Poor appetite or overeating: not at all 6. Feeling bad about yourself - or that you are a failure or have let yourself or your family down: not at all 7. Trouble concentrating on things, such as reading the newspaper or watching television: not at all 8. Moving or speaking so slowly that other people could have noticed. Or the opposite - being so fidgety or restless that you have been moving around a lot more than usual: not at all 9. Thoughts that you would be better off or of hurting yourself in some way: not at all Total score: 0 Depression Screening Interpretation: Negative Depression Screening Done: Yes Source: Developed by Drs. Triston Etienne, Shanta Lopez, Kirk Potter and colleagues, with an educational chris from [employer]. Thrive Questionnaire Date Thrive assessed: 05/24/25 I am a: Patient What is your living situation today?: I have a steady place to live Within the past 12 months, did the food you bought not last and you didn't have the money to get more?: Never true Within the past 12 months, did you worry whether your food would run out before you got money to buy more?: Never true Do you have trouble paying for medicines?: No Do you have trouble getting transportation to medical appointments?: No Do you have trouble paying your heating and electricity bill?: No Do you have trouble taking care of your child, family member or friend?: No Do you have trouble with day-to-day activities such as bathing, preparing meals, shopping, managing finances, etc.?: No Are you currently unemployed and looking for a job?: No Are you interested in more education?: I choose not to answer this question Please select the resources that you would like help with: None Currently or been in a relationship where the following occur: No concerns reported THRIVE Score: 0 AUDIT C Alcohol Use Questionnaire (AUDIT-C) 1. How often do you have a drink containing alcohol?: Monthly or less 2. How many drinks containing alcohol do you have on a typical day when you are drinking?: 3 or 4 3. How often do you have six or more drinks on one occasion?: Less than monthly Total Score: 3 CHLOÉ-7 AMB Questionnaire CHLOÉ-7 Date CHLOÉ - 7 assessed: 05/24/25 Feeling nervous, anxious, or on edge: 0 = Not at all Not being able to stop or control worryin = Not at all Worrying too much about different things: 0 = Not at all Trouble relaxin = Not at all Being so restless that it is hard to sit still: 0 = Not at all Becoming easily annoyed or irritable: 0 = Not at all Feeling afraid as if something awful might happen: 0 = Not at all Total CHLOÉ-7 score (0-4 normal; 5-9 mild; 10-14 moderate; 15-21 severe): 0 Source: Developed by Drs. Triston Etienne, Shanta Lopez, Kirk Potter and colleagues, with an educational chris from [employer]. Review of Systems Const All systems reviewed & are unremarkable except as noted in HPI and below Reports no additional complaints Eyes Reports no additional complaints ENT Reports no additional complaints Card Reports no additional complaints Resp Reports no additional complaints GI Reports no additional complaints Reports no additional complaints Physical exam (Primary Care) Vital Signs: Last Vital Signs Temp 98.3 F 05/24/25 14:19 Pulse 97 05/24/25 14:19 Resp 17 05/24/25 14:19 BP 110/68 05/24/25 14:19 Pulse Ox 97 05/24/25 14:19 Oxygen Delivery Method Room Air 05/24/25 14:19 BMI result Body Mass Index 24.5 Tobacco/Smoking Status: Tobacco use Status Tobacco use date assessed 05/24/25 05/24/25 14:26 Patient Tobacco Use Status Current everyday Tobacco 05/24/25 14:21 Tobacco use type Cigarette 05/24/25 14:21 e-Cigarette/Vaping Use Never Used 05/24/25 14:21 PHQ-9: PHQ-9 Score PHQ-9: Total score 0 05/24/25 14:43 Depression Screening Interpretation: Negative Thrive Assessment: Date of Thrive Assessment Date Thrive assessed 05/24/25 05/24/25 14:26 Currently or been in a relationship where the following occur: No concerns reported Const General: no acute distress HENMT Head: Yes normal to inspection Ears: hearing grossly normal bilaterally Face and sinus: Yes normal facial exam Throat: Yes posterior oropharynx normal Eyes General: appearance normal, both eyes and all related structures Neck Neck: Yes no lymphadenopathy and Yes supple Resp Effort & Inspection: normal respiratory effort Auscultation: clear to auscultation bilaterally Cardio Rate: regular rate Heart sounds: S1 normal heart sound present and S2 normal heart sound present GI Inspection: Yes normal to inspection Palpation (GI): Soft to palpation Percussion: Yes normal to percussion Auscultation: normal bowel sounds Extrem Other: 2+ pitting edema bilaterally Coding Level of Care Code Est Pt Prev Care 40-64y(13075) Diagnoses Hyperlipidemia E78.5 Annual physical exam Z00.00 Bilateral lower extremity edema R60.0 Tobacco dependence F17.200 Assessment & Plan Assessment & Plan (1) Hyperlipidemia: Code(s): E78.5 - Hyperlipidemia, unspecified Category: Medical Plan: Low-cholesterol diet discussed with the patient (2) Annual physical exam: Code(s): Z00.00 - Encounter for general adult medical examination without abnormal findings Category: Medical Plan: Well-balanced diet regular physical activity discussed with the patient. She is up-to-date with the mammogram colonoscopy and Pap smear (3) Bilateral lower extremity edema: Code(s): R60.0 - Localized edema Category: Medical Plan: For bilateral lower extremity edema patient will start furosemide 20 mg daily. She was advised to elevate lower extremities work compression knee-highs follow- up in 1 month (4) Tobacco dependence: Comment: 1/2 PPD x20yrs Code(s): F17.200 - Nicotine dependence, unspecified, uncomplicated Category: Medical Plan: Buccal quitting discussed with the patient. She will try Chantix Orders: Orders Basic Metabolic Panel 2 Weeks I83.11 - Varicose veins of right lower extremity with inflammation IRON PROFILE 2 Weeks I83.11 - Varicose veins of right lower extremity with inflammation Medications: New varenicline tartrate (Chantix Continuing Month Box) 1 mg PO BID 56 tabs 0RF varenicline tartrate (Chantix Starting Month Box) PO PER PKG DIR 53 ea 0RF Changed From furosemide (Lasix) 20 mg PO Q OTHER DAY 20 tabs 5RF To furosemide (Lasix) 20 mg PO .QD 90 tabs 2RF
--- OUTSIDE RECORDS SUMMARY | 2025-05-24 15:11 | XMS_ITS | Clinical Summary ---
Author Organization [facility] Address [address] [place] [address] [place] [id number] Phone Care Team Providers Care Cream Cheese Maker Name Role Phone Mary Ann Lynch MD Primary Care Provider [phone] Social History Tobacco Use Types Packs/Day Years [...] Office Visit [facility] [address] [place] [address] [place] [address] Carlitos Romo MD [address] [facility], [address] [place] [address] [email or web address] Maintenance Due Date Last Done Comments [...] topic Medical Devices Not on file Insurance [facility] PPO Care Teams Cream Cheese Maker Relationship Specialty Start Date End Date Mary Ann Lynch MD [facility] [place] [id number] PCP - General Internal Medicine 05/20/25 Additional Source Comments The information contained in this document represents components of the legal health record. It is not the complete legal health record.[facility]
== END 2025-05-24 15:03 | disposition home or self-care (01) ==
LOC: HO.HMCC 13:52
PROVIDERS: PCP Internal Medicine; Visit Provider Internal Medicine
DX: E78.5 Hyperlipidemia, unspecified (principal); Z00.00 Encounter for general adult medical examination without abnormal findings; R60.0 Localized edema; F17.200 Nicotine dependence, unspecified, uncomplicated

== ENCOUNTER 2025-05-25 15:37 | Outpatient (AMB) | payer BC, SELFPAY ==
[2025-05-25 15:38] VITALS: BP 139/72; PULSE 79; BMI 24.7
--- NOTE | 2025-05-25 15:38 | MHC.OFFVIS ---
Vital Signs 05/25/25 15:38 Height 5 ft 4 in Weight 144 lb BMI 24.7 BP 139/72 Blood Pressure Location Rt brachial Position Sitting Pulse 79 Intake Visit Reasons: 1 month S/P Lt brst lumpectomy w/localizer Intake Note: This patient presents for one month follow-up status post Lumpectomy, left breast with the Hologic localizer. Pt c/o; reports surgical site still feels stiff, reports no redness or hot to the touch sensation on the breast. 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 Setter Required: No Accompanied by: Self / Same As Patient Allergies No Known Allergies Allergy (Verified 05/25/25 15:45) Medication List - Last Reconciled 05/25/25 by Irving Corrigan MD black cohosh root extract 160 mg PO DAILY cholecalciferol (vitamin D3) 25 mcg PO DAILY furosemide (Lasix) 20 mg PO .QD ibuprofen 600 mg PO Q6H PRN magnesium gluconate (Mag-G) 27 mg PO BID varenicline tartrate (Chantix Continuing Month Box) 1 mg PO BID varenicline tartrate (Chantix Starting Month Box) PO PER PKG DIR HPI HPI 1 month S/P Lt brst lumpectomy w/localizer: Details: She had a mammogram last November 2024 showing bilateral enhancement of both the left and right breasts and a follow up MRI had been recommended in 6 months She denies any new complaints She did have lumpectomy last March, for atypical ductal hyperplasia of the left breast. There is a 2nd area of atypical ductal hyperplasia of the lower aspect of the left breast. She is supposed to have this excised as well. 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 Surgical History Atypical ductal hyperplasia of left breast Hx of colonoscopy History of lumpectomy (~04/07/25) History of bunionectomy Family History Father High blood pressure Constipation Mother Thyroid condition Maternal Uncle Lung cancer Maternal Aunt Cancer Social History Housing: House Alcohol intake: current Alcohol intake frequency: a few times a week Alcohol type: beer and wine Patient Tobacco Use Status: Current everyday Tobacco user Tobacco use type: Cigarette Cigarettes Per Day: 10 e-Cigarette/Vaping Use: Never Used service: No Current occupational status: employed 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[employer] Cognitive needs: No Hearing needs: No Vision needs: Yes Review of Systems Const Denies chills and Denies fever(s) Card Denies chest pain, Denies dyspnea and Denies dyspnea on exertion Resp Denies cough, Denies dyspnea and Denies dyspnea on exertion GI Denies hematochezia and Denies change in bowel habits Denies hematuria Musc Denies back pain and Denies limited range of motion Neuro Denies focal weakness and Denies convulsions Psych Denies depression and Denies mood swings Physical Exam Vital Signs: BMI result Body Mass Index 24.5 Const General: comfortable and no acute distress Orientation/consciousness: patient oriented x3 Neck Neck: Yes no lymphadenopathy Chest Other: Well healed scar on the upper aspect of the left breast, no palpable masses Resp Auscultation: clear to auscultation bilaterally Cardio Rhythm: regular rhythm GI Palpation (GI): Soft to palpation, nontender and no guarding Neuro General: patient oriented x3 Assessment & Plan Assessment & Plan (1) Breast calcification, right: Code(s): R92.1 - Mammographic calcification found on diagnostic imaging of breast Category: Medical Plan: She has this abnormal enhancement of both the left and the right breast seen on previous mammogram. The radiologist had recommended doing a follow up MRI. I am going to schedule this for her. I told her that at some point, we will need to proceed with excision of the area of intraductal papilloma on the lower aspect of her left breast as well. I will here again in the office after her MRI. I will see her again in the office after her MRI and discuss the next step in her care. She is comfortable with the plan. Orders: Orders MR breast BI wo/w con Today R92.1 - Mammographic calcification found on diagnostic imaging of breast, R92.8 - Other abnormal and inconclusive findings on diagnostic imaging of breast Coding Level of Care Code Est Pt Level 3 (01449) Diagnoses Breast calcification, right R92.1
== END 2025-05-25 16:00 | disposition home or self-care (01) ==
LOC: HO.HGS 15:37
PROVIDERS: PCP Internal Medicine; Visit Provider Surgery
DX: R92.1 Mammographic calcification found on diagnostic imaging of breast (principal)
CPT/HCPCS: 99213

== ENCOUNTER 2025-06-04 09:30 | Outpatient (REF) | payer BC, SELFPAY ==
--- OUTSIDE RECORDS SUMMARY | 2025-06-04 09:32 | XMS_ITS | Clinical Summary ---
Author Organization [facility] Address [address] [place] [address] [place] [phone] Phone Care Team Providers Care Health Informatics Instructor Name Role Phone Mary Ann Lynch MD Primary Care Provider [phone] Social History Tobacco Use Types Packs/Day Years [...] Office Visit [facility] [address] [place] [address] [place] [address] Carlitos Romo MD [address] [facility], [address] [place] [address] [email or web address] Maintenance Due Date Last Done Comments [...] 2021 INFLUENZA VACCINE (#1) 2025 COVID-19 VACCINE (1 - 2024-2 6 season) 2025 RSV VACCINE (1 - 1-dose 75+ series) 2046 HEPATITIS A VACCINES Aged Out No long [...] topic Medical Devices Not on file Insurance [facility] PPO BLUE CROSS OUT OF STATE PPO BLUE CROSS OUT OF STATE PPO BLUE CROSS OUT OF STATE PPO Care Teams Health Informatics Instructor Relationship Specialty Start Date End Date Mary Ann Lynch MD [address] [facility] [place] [address] PCP - General Internal Medicine 05/20/25 Additional Source Comments The information contained in this document represents components of the legal health record. It is not the complete legal health record.[facility]
[2025-06-04 11:35] LABS: Anion Gap 12 (12-20); Blood Urea Nitrogen 11 mg/dL (9-16); Calcium 9.3 mg/dL (8.4-10.2); Carbon Dioxide 25 mmol/L (22-29); Chloride 106 mmol/L (96-108); Estimated Glomerular Filt Rate > 60; Iron 153 mcg/dL (30-160); Percent Iron Saturation 44 % (15-50); Potassium 3.9 mmol/L (3.3-5.1); Sodium 139 mmol/L (135-145); Total Iron Binding Capacity 349 mcg/dL (228-428); Unsaturated Iron Binding 196 ug/dL
== END 2025-06-04 09:31 | disposition home or self-care (01) ==
LOC: HO.HMGCLDS 09:30
PROVIDERS: PCP Internal Medicine; Visit Provider Internal Medicine
DX: I83.11 Varicose veins of right lower extremity with inflammation (principal)
CPT/HCPCS: 36415; 80048; 83540

== ENCOUNTER 2025-06-23 13:28 | Outpatient (AMB) | payer BC, SELFPAY ==
--- NOTE | 2025-06-23 13:34 | MHC.PC.OV ---
Vital Signs 06/23/25 13:36 Height 5 ft 4 in Weight 142 lb BMI 24.4 BP 100/64 Blood Pressure Location Rt brachial Position Sitting Pulse 83 Pulse Source Pulse Oximeter Temp 98.2 F Temp Source Oral Pulse Oximetry (%) 97 Oxygen Delivery Method Room Air Intake Visit Reasons: 1 mo follow up Intake Note: Pt is here today for her 1mo. f/u Allergies No Known Allergies Allergy (Verified 06/23/25 13:35) Medication List - Last Reconciled 06/23/25 by Mary Ann Lynch MD black cohosh root extract 160 mg PO DAILY cholecalciferol (vitamin D3) 25 mcg PO DAILY furosemide (Lasix) 20 mg PO .QD ibuprofen 600 mg PO Q6H PRN magnesium gluconate (Mag-G) 27 mg PO BID varenicline tartrate (Chantix Continuing Month Box) 1 mg PO BID varenicline tartrate (Chantix Starting Month Box) PO PER PKG DIR Tobacco use date assessed: 06/23/25 Dental Screening Dental Screen Date: 06/23/25 Did you have a dental visit in the last 12 months?: Yes Did you have a dental problem in the last 6 months where you did not have access to dental care?: No Was dental information given to patient?: Patient has dentist HPI 1 mo follow up HPI Details Pt presents for f/u hyperlipid. Patient has been following low-cholesterol diet. Lower extremity edema improved on Lasix and patient has been wearing compression knee highs. 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 Surgical History Atypical ductal hyperplasia of left breast Hx of colonoscopy History of lumpectomy (~04/07/25) History of bunionectomy Family History Father High blood pressure Constipation Mother Thyroid condition Maternal Uncle Lung cancer Maternal Aunt Cancer Social History Housing: House Alcohol intake: current Alcohol intake frequency: a few times a week Alcohol type: beer and wine Patient Tobacco Use Status: Current everyday Tobacco user Tobacco use type: Cigarette Cigarettes Per Day: 10 e-Cigarette/Vaping Use: Never Used service: No Current occupational status: employed 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 1. Little interest or pleasure in doing things: not at all 2. Feeling down, depressed, or hopeless: not at all 3. Trouble falling or staying asleep, or sleeping too much: not at all 4. Feeling tired or having little energy: not at all 5. Poor appetite or overeating: not at all 6. Feeling bad about yourself - or that you are a failure or have let yourself or your family down: not at all 7. Trouble concentrating on things, such as reading the newspaper or watching television: not at all 8. Moving or speaking so slowly that other people could have noticed. Or the opposite - being so fidgety or restless that you have been moving around a lot more than usual: not at all 9. Thoughts that you would be better off or of hurting yourself in some way: not at all Total score: 0 Depression Screening Interpretation: Negative Depression Screening Done: Yes Source: Developed by Drs. Triston Etienne, Shanta Lopez, Kirk Potter and colleagues, with an educational chris from [employer]. Thrive Questionnaire Date Thrive assessed: 05/17/25 I am a: Patient What is your living situation today?: I have a steady place to live Within the past 12 months, did the food you bought not last and you didn't have the money to get more?: Never true Within the past 12 months, did you worry whether your food would run out before you got money to buy more?: Never true Do you have trouble paying for medicines?: No Do you have trouble getting transportation to medical appointments?: No Do you have trouble paying your heating and electricity bill?: No Do you have trouble taking care of your child, family member or friend?: No Do you have trouble with day-to-day activities such as bathing, preparing meals, shopping, managing finances, etc.?: No Are you currently unemployed and looking for a job?: No Are you interested in more education?: I choose not to answer this question Please select the resources that you would like help with: None Currently or been in a relationship where the following occur: No concerns reported THRIVE Score: 0 AUDIT C Alcohol Use Questionnaire (AUDIT-C) 1. How often do you have a drink containing alcohol?: Monthly or less 2. How many drinks containing alcohol do you have on a typical day when you are drinking?: 3 or 4 3. How often do you have six or more drinks on one occasion?: Less than monthly Total Score: 3 CHLOÉ-7 AMB Questionnaire CHLOÉ-7 Date CHLOÉ - 7 assessed: 05/24/25 Feeling nervous, anxious, or on edge: 0 = Not at all Not being able to stop or control worryin = Not at all Worrying too much about different things: 0 = Not at all Trouble relaxin = Not at all Being so restless that it is hard to sit still: 0 = Not at all Becoming easily annoyed or irritable: 0 = Not at all Feeling afraid as if something awful might happen: 0 = Not at all Total CHLOÉ-7 score (0-4 normal; 5-9 mild; 10-14 moderate; 15-21 severe): 0 Source: Developed by Drs. Triston Etienne, Shanta Lopez, Kirk Potter and colleagues, with an educational chris from [employer]. Review of Systems Const All systems reviewed & are unremarkable except as noted in HPI and below Card Reports no additional complaints Resp Reports no additional complaints GI Reports no additional complaints Reports no additional complaints Physical exam (Primary Care) Vital Signs: Last Vital Signs Temp 98.2 F 06/23/25 13:36 Pulse 83 06/23/25 13:36 BP 100/64 06/23/25 13:36 Pulse Ox 97 06/23/25 13:36 Oxygen Delivery Method Room Air 06/23/25 13:36 BMI result Body Mass Index 24.4 Tobacco/Smoking Status: Tobacco use Status Tobacco use date assessed 06/23/25 06/23/25 13:41 Patient Tobacco Use Status Current everyday Tobacco 06/23/25 13:41 Tobacco use type Cigarette 06/23/25 13:41 e-Cigarette/Vaping Use Never Used 06/23/25 13:41 PHQ-9: PHQ-9 Score PHQ-9: Total score 0 06/23/25 14:18 Depression Screening Interpretation: Negative Thrive Assessment: Date of Thrive Assessment Date Thrive assessed 05/17/25 06/23/25 13:41 Currently or been in a relationship where the following occur: No concerns reported Const General: no acute distress HENMT Face and sinus: Yes normal facial exam Eyes General: appearance normal, both eyes and all related structures Neck Neck: Yes supple Resp Effort & Inspection: normal respiratory effort Auscultation: clear to auscultation bilaterally Cardio Rhythm: regular rhythm Heart sounds: S1 normal heart sound present and S2 normal heart sound present Coding Level of Care Code Est Pt Level 4 (59586) Diagnoses Hyperlipidemia E78.5 Varicose veins of right lower extremity with inflammation I83.11 Tobacco dependence F17.200 Assessment & Plan Assessment & Plan (1) Hyperlipidemia: Code(s): E78.5 - Hyperlipidemia, unspecified Category: Medical Plan: Continue low-cholesterol diet increase physical activity adding fish oil supplement discussed with the patient . She will follow-up in 6 months (2) Varicose veins of right lower extremity with inflammation: Code(s): I83.11 - Varicose veins of right lower extremity with inflammation Category: Medical Plan: Continue supportive knee highs and Lasix as needed (3) Tobacco dependence: Comment: 08/26 PPD x20yrs Code(s): F17.200 - Nicotine dependence, unspecified, uncomplicated Category: Medical Plan: Tobacco quitting discussed with the patient Orders: Orders Lipid Panel 6 Months E78.5 - Hyperlipidemia, unspecified Hemoglobin A1c 6 Months E78.5 - Hyperlipidemia, unspecified Complete Blood Count Auto Diff 6 Months E78.5 - Hyperlipidemia, unspecified Comprehensive [place]. Panel Fast 6 Months E55.9 - Vitamin D deficiency, unspecified, R73.9 - Hyperglycemia, unspecified Vitamin D 25-OH Total 6 Months E55.9 - Vitamin D deficiency, unspecified, R73.9 - Hyperglycemia, unspecified
[2025-06-23 13:36] VITALS: BP 100/64; PULSE 83; TEMP 36.8; O2SAT 97; BMI 24.4
--- OUTSIDE RECORDS SUMMARY | 2025-06-23 16:33 | XMS_ITS | Clinical Summary ---
Author Organization [facility] Address [address] [place] [address] [place] [phone] Phone Care Team Providers Care Nuclear Unit Operator Name Role Phone Mary Ann Lynch MD Primary Care Provider [phone] Social History Tobacco Use Types Packs/Day Years [...] Office Visit [facility] [address] [place] [address] [place] [address] Carlitos Romo MD [address] [facility], [address] [place] [address] [email or web address] Maintenance Due Date Last Done Comments [...] topic Medical Devices Not on file Insurance [facility] PPO BLUE CROSS OUT OF STATE PPO BLUE CROSS OUT OF STATE PPO BLUE CROSS OUT OF STATE PPO Care Teams Nuclear Unit Operator Relationship Specialty Start Date End Date Mary Ann Lynch MD [address] [place] [address] PCP - General Internal Medicine 05/20/25 Additional Source Comments The information contained in this document represents components of the legal health record. It is not the complete legal health record.[facility]
== END 2025-06-23 14:26 | disposition home or self-care (01) ==
LOC: HO.HMCC 13:29
PROVIDERS: PCP Internal Medicine; Visit Provider Internal Medicine
DX: E78.5 Hyperlipidemia, unspecified (principal); I83.11 Varicose veins of right lower extremity with inflammation; F17.200 Nicotine dependence, unspecified, uncomplicated

== ENCOUNTER → 2025-07-11 14:48 | Outpatient (BNV) | payer BC, SELFPAY | PROVIDERS: PCP Internal Medicine; Visit Provider Radiology Body Imaging | DX: N63.15 Unspecified lump in the right breast, overlapping quadrants (principal); D24.2 Benign neoplasm of left breast; N60.82 Other benign mammary dysplasias of left breast; R92.8 Other abnormal and inconclusive findings on diagnostic imaging of breast | CPT/HCPCS: 77049 ==

== ENCOUNTER 2025-07-11 15:06 | Outpatient (REF) | payer BC, SELFPAY ==
--- OUTSIDE RECORDS SUMMARY | 2025-07-07 16:10 | XMS_ITS | Encounter Summary ---
Author Organization [facility] Address [address] [facility] [address] [place] [address] Phone Care Team Providers Care Security Intern Name Role Phone Mary Ann Lynch MD Primary Care Provider [phone] Reason for Visit * Reason Comments Annual Exam New Patient Encounter Details Date Type Department Care Team (Latest Contact Info) Description 07/07/2025 4:10 PM EST Office Visit [facility] [address] [place] [address] [place] [address] Carlitos Romo MD [address] [place] [address], [address] [place] [address] [email or web address] Encounter for annual routine gynecological examination (Primary Dx); Screening for cervical cancer; Breast cancer screening by mammogram; Uterine leiomyoma, unspecified location Social History Tobacco Use Types Packs/Day Years Used Date Smoking Tobacco: Every Day Cigarettes 0.5 30.9 Started: 1993 Smokeless Tobacco: Never Tobacco Cessation:Ready to Q uit: Not Asked; Counseling Given: Not Answered Alcohol Use Standard Drinks/Week Comments Yes 0 (1 standard drink = 0.6 oz pur e alcohol) socially Education Answer Date Recorded Are you interested in more education? Not on sukhdeep e 05/20/2025 Are you concerned about learning? Not on file 05/20/2025 No 05/20/2025 No 05/20/2025 Digital Access Answer Date Recorded No 05/20/2025 No 05/20/2025 Reliable internet access at home? Not on file 05/20/2025 Device with a working camera? Not on file Comments No Sex and Gender Information Value Date Recorded Sex Assigned at Not on file Legal Sex Female 10:43 AM EDT Gender Identity Not on file Sexual Orientation Not on file documented as of this encounter Last Filed Vital Signs Vital Sign Reading Time Taken Comments Blood Pressure 108/70 07/07/2025 4:14 PM EST Pulse - - Temperature - - Respiratory Rate - - Oxygen Saturation - - Inhaled Oxygen Concentration - - Weight 63.5 kg (140 lb) 07/07/2025 4:14 PM EST Height - - Body Mass Index - - documented in this encounter Progress Notes * Carlitos Romo MD - 07/07/2025 4:10 PM EST Office note: Annual Exam Encounter Date: 07/07/2025 HPI: Sheba Robbins is a 54 y.o. who presents for routine annual exam. Patient's last menstrual period was 06/30/2025 (exact date). She is a new patient to our practice. She denies any history of abnormal Paps. She reports normal Pap in 2023 at [facility]. Of note, she had a left lumpectomy in March of this year for what sounds like a fibroadenoma. She has a breast MRI scheduled next week as there is a suspected second lump in the same breast. She notes that her periods have started to spaceout and she skipped a couple. She did have hot flashes and night sweats at 1 point but they have improved. Overall, she is doing well and has no acute complaints. Review of Systems - General ROS: negative Psychological ROS: negative Ophthalmic ROS: negative ENT ROS: negative Allergy and Immunology ROS: negative Hematological and Lymphatic ROS: negative Endocrine ROS: negative Breast ROS: negative for breast lumps Respiratory ROS: no cough, shortness of breath, or wheezing Cardiovascular ROS: no chest pain or dyspnea on exertion Gastrointestinal ROS: no abdominal pain, change in bowel habits, or black or bloody stools Genito-Urinary ROS: no dysuria, trouble voiding, or hematuria Musculoskeletal ROS: negative Neurological ROS: negative Dermatological ROS: negative Health Maintenance and Preventative Care: Immunization History Administered Date(s) Administered COVID-19 (Pre-06/16) Pfizer Vaccine, Bivalent 12+ 06/13/2022 COVID-19 (Pre-06/16) Pfizer Vaccine, mRNA, PF 05/10/2021, 05/31/2021 COVID-19 (Pre-06/16) Pfizer Vaccine, mRNA, bhumika-sucrose, PF 10/29/2021, 03/13/2022 Obstetric and Gynecologic History OB History Para Term AB Living 1 1 1 1 SAB IAB Ectopic Multiple Live Births 1 # Outcome Date GA Lbr Wilfredo/2nd Weight Sex Type Anes PTL Lv 1 Term 2000 F Vag-Spont XAIVER Menstrual History Patient's last menstrual period was 06/30/2025 (exact date). Past Histories: There is no problem list on file for this patient. No past medical history on file. Past Surgical History: Procedure Laterality Date BREAST LUMPECTOMY 04/07/2025 No family history on file. Social History Socioeconomic History Marital status: /Civil Union Spouse name: Not on file Number of children: Not on file Years of education: Not on file Highest education level: Not on file Occupational History Not on file Tobacco Use Smoking status: Every Day Current packs/day: 0.50 Average packs/day: 0.5 packs/day for 30.9 years (15.4 ttl pk-yrs) Types: Cigarettes Start date: 1994 Smokeless tobacco: Never Vaping Use Vaping status: never used Substance and Sexual Activity Alcohol use: Yes Comment: socially Drug use: Never Sexual activity: Not Currently Partners: Male Other Topics Concern Not on file Social History Narrative Not on file No Known Allergies Current Outpatient Medications: black cohosh 200 mg Cap, Take by mouth., Disp: , Rfl: , Last Dispense: Unknown (patient-reported) cholecalciferol (VITAMIN D3) 25 MCG (1,000 unit) tablet, Take 1,000 Units by mouth daily., Disp: , Rfl: , Last Dispense: Unknown (patient-reported) furosemide (LASIX) 20 MG tablet, Take 1 tablet by mouth every morning., Disp: , Rfl: , Last Dispense: Unknown (patient-reported) magnesium 250 mg Tab, Take by mouth., Disp: , Rfl: , Last Dispense: Unknown (patient-reported) omega 6-irh-zgb-fish oil 1,000 (120-180) mg Cap, Take 1 capsule by mouth daily., Disp: , Rfl: , Last Dispense: Unknown (patient-reported) varenicline tartrate (CHANTIX IRA) 0.5 mg (11)- 1 mg (42) tablet, TAKE TABLETS BY MOUTH PER PACKAGEDIRECTIONS, Disp: , Rfl: , Last Dispense: Unknown (patient-reported) varenicline tartrate (CHANTIX) 1 mg tablet, Take 1 tablet by mouth 2 (two) times a day., Disp: , Rfl: , Last Dispense: Unknown (patient-reported) Physical exam: Blood pressure 108/70, weight 63.5 kg (140 lb), last menstrual period 06/30/2025. Gen: Alert, cooperative. Well-appearing on today's exam HEENT: head normocephalic without obvious deformity. Normal dentition. Neck: Trachea midline. No palpable cervical lymphadenopathy noted. Thyroid normal to inspection andpalpation. Cardiovascular: regular rate and rhythm, no m/r/g Lung: clear to auscultation bilaterally, no wheezing, ronchi, normal respiratory effort Breast: Normal appearance, no masses or tenderness, no nipple retraction or dimpling bilaterally. No axillary or supraclavicular lymphadenopathy. Abdomen: Soft,non-tender. No masses palpable, no organomegaly. No notable scarring. Extremities: no calf tenderness, discoloration or edema, atraumatic without deformity Skin: Skin color, texture, turgor normal. No rashes or lesions Psych: Mood and affect appropriate. Pelvic: External Genitalia: Normal architecture, without lesions. No inguinal lymphadenopathy. Vagina: Mucosa is pink with normal rugae. No abnormal discharge or lesions. Cervix: Normal appearance, without discharge or lesions. No cervical motion tenderness. Uterus: Enlarged, approximate 10 weeks size.. Anteverted position. Non-tender. Mobile Adnexa: No adnexal masses or tenderness bilaterally. Perianal area without lesions Assessment/Plan: 54 y.o. 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 However, she does have a suspected enlarged uterus. Routine health maintenance was reviewed. Screening for cervical cancer Presuming her last Pap was normal, plan for repeat Pap/HPV in 2028. We will request the records from [facility]. Breast cancer screening by mammogram BSE reviewed and she has a breast MRI scheduled for next week secondary to her history as outlined above. Uterine leiomyoma, unspecified location Her uterus appears to be enlarged on examination. I have recommended a pelvic ultrasound for evaluation. She does not give a history of known fibroids. Relevant Orders US Pelvis Carlitos Romo MD documented in this encounter Plan of Treatment Upcoming Encounters Date Type Department Care Team (Late st Contact Info) Description 07/15/2025 4:40 PM EST Appointment [facility] [address] [place] [address] Carlitso Romo MD [address] [place] [address], [address] [place] [address] [email or web address] Scheduled Orders Name Type Priority Associated Diagnoses Orde r Schedule US Pelvis Imaging Routine Uterine leiomyoma, unspecified location Expected: 07/07/2025, Expires: 07/07/2026 documented as of this encounter Visit Diagnoses Diagnosis Encounter for annual routine gynecological examination- Primary Screening for cervical cancer Screening for malignant neoplasm of the cervix Breast cancer screening by mammogram Uterine leiomyoma, unspecified location documented in this encounter Care Teams Security Intern Relationship Specialty Start Date End Date Mary Ann Lynch MD [address] [place] [id number] PCP - General Internal Medicine 05/20/25 documented as of this encounter Additional Source Comments The information contained in this document represents components of the legal health record. It is not the complete legal health record.[facility]
--- NOTE | ~2025-07-11 | MR_ITS ---
EXAMINATION: MR BREAST WITHOUT AND WITH CONTRAST, BILATERAL CLINICAL INFORMATION: -Status post stereotactic needle core biopsy of left breast architectural distortion on July 15, 2024 (top hat shape clip). Pathology showed atypical ductal hyperplasia. -Status post MR guided left breast needle core biopsy on January 20, 2025 of enhancing mass in the lower outer quadrant of the left breast. Trimark cylinder shape clip. Pathology showed breast tissue with a small intraductal papilloma and fibrocystic and fibroadenomatous change. This was considered high risk and concordant with imaging findings. -Status post excisional biopsy of left breast atypical ductal hyperplasia on April 07, 2025. Pathology results showed radial sclerosing lesion with sclerosing adenosis, moderate usual ductal hyperplasia, duct ectasia, dilated ducts and cystic apocrine metaplasia. Small intraductal papilloma. -Breast MRI on December 20, 2024 describes two enhancing foci of posterior superior breast. Six month follow-up MRI was recommended. COMPARISON: -Breast MRI on December 20, 2024. Note that due to technical problems, the kinetics on the previous examination cannot be reviewed and the markings on the previous examination could not be retrieved. -Left diagnostic mammogram on July 08, 2024. Bilateral screening mammogram on May 21, 2024. TECHNIQUE: Siemens Magnetom Altea 1.5 T utilized. MR imaging of the breast was performed using T1, T2 and fat saturated techniques. Dynamic multiphase imaging was performed with 4 sequences after the administration of 7.5 cc of intravenous gadolinium contrast agent Gadavist 3D image processing was performed using the diagnostic workstation (Indigo Identity[employer] software) with real-time multiplanar image reformation and maximum intensity projection ray tracing. Kinetic curves were obtained. FINDINGS: Breast composition: Extreme fibroglandular tissue. Marked background parenchymal enhancement. RIGHT BREAST: -Multiple nonenhancing T2 hyperintense cysts scattered throughout the breast. -Previously seen enhancing mass in the superior breast at approximately 12 o'clock position at approximately 8.0 cm from the nipple measures 0.5 x 0.4 cm (11:67/126, 1047:67/126, 19:56/210) is associated with persistent kinetics on the delayed phase. The size is unchanged from November 2024. -Previously seen enhancing mass in the lateral breast at approximately 9 o'clock position at 8.6 cm from the nipple measures 0.5 x 0.3 cm (11:64/126, 1043:64/126, 19:45/210) is associated with persistent kinetics on the delayed phase. The size unchanged from November 2024. -Multiple additional areas with persistent kinetics on the delayed phase are thought to represent part of the background enhancement. No suspicious masses or areas of non mass enhancement. -No axillary or internal mammary adenopathy. LEFT BREAST: -Postsurgical changes in the upper breast from prior excisional biopsy. This focal area of the enhancement associated with persistent kinetics in the vicinity of the postsurgical changes, with approximately 1 o'clock position at about 8 cm from the nipple (11:53/126, 1043:53/126, 19:160/210) that appears related to related to postsurgical changes. -Susceptibility artifact in the lower outer quadrant at approximately 3.5 cm from the nipple (4:88/144) likely correlates with the tissue marker from previous MR guided needle core biopsy. -Multiple nonenhancing T2 hyperintense cysts scattered throughout the breast. -No suspicious masses or areas of non mass enhancement. In particular, no suspicious mass or areas of the nonmass enhancement adjacent to the biopsy marker in the lower outer quadrant. -No axillary or internal mammary adenopathy. Limited views of the chest and abdomen are unremarkable. MR/MR breast BI wo/w con IMPRESSION: RIGHT BREAST: Enhancing masses at approximately 12 o'clock position at 8 cm from the nipple and at 9 o'clock position at 8.6 cm from the nipple could represent part of the background enhancement. Probably benign. Recommend 6-month follow-up MRI for further evaluation of the stability. LEFT BREAST: Benign findings. No MR specific evidence of malignancy. ASSESSMENT: BIRADS 3: Probably benign RECOMMENDATIONS: -6-month follow-up breast MRI. -Patient's last bilateral mammogram was on May 21, 2024. Patient is overdue for bilateral mammogram. Electronically signed by: Jelena Gu MD 07/12/2025 07:44 PM [facility]
--- OUTSIDE RECORDS SUMMARY | 2025-07-12 05:52 | XMS_ITS | Clinical Summary ---
Author Organization [facility] Address [address] [place] [address] Phone Care Team Providers Care Simulation Specialist Name Role Phone Mary Ann Lynch MD Primary Care Provider [phone] Allergies No known active allergies Medications furosemide (LASIX) 20 MG tablet Take 1 tablet by mouth every morning. 5 Active varenicline tartrate (CHANTIX) 1 mg tablet Take 1 tablet by mouth 2 (two) times a day. 5 Active varenicline tartrate (CHANTIX IRA) 0.5 mg (11)- 1 mg (42) tablet TAKE TABLETS BY MOUTH PER PACKAGE DIRECTIONS Active magnesium 250 mg Tab Take by mouth. Activ e omega 9-bzp-yhc-fish oil 1,000 (120-180) mg Cap Take 1 capsule by mouth daily. Active black cohosh 200 mg Cap Take by mouth. Acti ve cholecalciferol (VITAMIN D3) 25 MCG (1,000 unit) tablet Take 1,000 Units by mouth daily. Active Active Problems No known active problems Encounters Date Type Department Care Team Description 07/07/2025 4:10 PM EST Office Visit [facility] [address] [place] [address] [place] [address] Carlitos Romo MD Encounter for annual routine gynecological examination (Primary Dx); Screening for cervical cancer; Breast cancer screening by mammogram; Uterine leiomyoma, unspecified location from Last 3 Months Social History Tobacco Use Types Packs/Day Years [...] on file Sexual Orientation Not on file Last Filed Vital Signs Vital Sign Reading Time Taken Comments Blood Pressure 108/70 07/07/2025 4:14 PM EST Pulse - - Temperature - - Respiratory Rate - - Oxygen Saturation - - Inhaled Oxygen Concentration - - Weight 63.5 kg (140 lb) 07/07/2025 4:14 PM EST Height - - Body Mass Index - - Plan of Treatment Upcoming Encounters Date Type Department Care Team (Late st Contact Info) Description 07/15/2025 4:40 PM EST Appointment [facility] [address] [place] [address] Carlitos Romo MD [address] [place] [address], [address] [place] [address] Health Maintenance Due Date Last Done Comments Adult Td,Tdap Booster 1971 LIPID PANEL 1971 DEPRESSION SCREENING 1983 SMOKING Hx and SMOKELESS TOBACCO SCREENING 1984 HEPATITIS C SCREENING 1989 HIV ONE-TIME SCREENING (18-65 YEARS) 1989 PNEUMOCOCCAL VACCINES (50+ years) (1 of 2 - PCV) 1990 PAP SMEAR 1992 MAMMOGRAM 2011 COLOGUARD 2016 COLONOSCOPY 2016 COLORECTAL CANCER SCREENING 2016 FIT TEST 2016 FOBT 2016 SIGMOIDOSCOPY 2016 VIRTUAL COLONOSCOPY 2016 ZOSTER VACCINES (1 of 2) 2021 INFLUENZA VACCINE (#1) 2025 06/06/2022 COVID-19 VACCINE ( - season) 2025 06/13/2022, 03/13/2022, 10/29/2021, Additional history exists RSV VACCINE (1 - 1-dose 75+ series) 2046 HEPATITIS A VACCINES Aged Out No long er eligible based on patient's age to complete this topic HIB VACCINES Aged Out No longer eligi ble based on patient's age to complete this topic IPV VACCINES Aged Out No longer eligi ble based on patient's age to complete this topic MENINGOCOCCAL VACCINES (ACWY) Aged Out No longer eligible based on patient's age to complete this topic MENINGOCOCCAL VACCINES (B) Aged Out N o longer eligible based on patient's age to complete this topic Medical Devices Not on file Insurance [facility] PPO [facility] PPO BLUE CROSS OUT OF STATE PPO BLUE CROSS OUT OF STATE PPO BLUE CROSS OUT OF STATE PPO BLUE [place]IARTY OUT [facility] PPO Care Teams Simulation Specialist Relationship Specialty Start Date End Date Mary Ann Lynch MD [address] [place], [place] [id number] PCP - General Internal Medicine 05/20/25 Additional Source Comments The information contained in this document represents components of the legal health record. It is not the complete legal health record.[facility]
== END 2025-07-11 15:07 | disposition home or self-care (01) ==
LOC: HO.MRI 15:06
PROVIDERS: PCP Internal Medicine; Visit Provider Surgery
DX: R92.1 Mammographic calcification found on diagnostic imaging of breast (principal)
CPT/HCPCS: 77049; A9585

== ENCOUNTER 2025-07-28 09:16 | Outpatient (AMB) | payer BC, SELFPAY ==
--- NOTE | 2025-07-28 09:19 | A.OFFVIS_ITS ---
Vital Signs 07/28/25 09:23 Height 5 ft 4 in Weight 146 lb 8 oz BMI 25.1 Intake Visit Reasons: MRI results Intake Note: Patient presents for MRI results. Pt c/o; no new complaints. Poker Room Manager Required: No Accompanied by: Self / Same As Patient Allergies No Known Allergies Allergy (Verified 07/28/25 09:24) Medication List - Last Reconciled 07/28/25 by Irving Corrigan MD black cohosh root extract 160 mg PO DAILY cholecalciferol (vitamin D3) 25 mcg PO DAILY furosemide (Lasix) 20 mg PO .QD ibuprofen 600 mg PO Q6H PRN magnesium gluconate (Mag-G) 27 mg PO BID varenicline tartrate (Chantix Continuing Month Box) 1 mg PO BID varenicline tartrate (Chantix Starting Month Box) PO PER PKG DIR HPI HPI MRI results: Details: I had sent her for an MRI because of multiple findings on both breasts in the past. She had a previous lumpectomy for atypical ductal hyperplasia on the left. She also had a biopsy showing an intraductal papilloma the lower part of the left breast in the past as well . She denies any palpable breast mass. She denies any nipple or skin changes. 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 Surgical History Atypical ductal hyperplasia of left breast Hx of colonoscopy History of lumpectomy (~04/07/25) History of bunionectomy Family History Father High blood pressure Constipation Mother Thyroid condition Maternal Uncle Lung cancer Maternal Aunt Cancer Social History Housing: House Alcohol intake: current Alcohol intake frequency: a few times a week Alcohol type: beer and wine Patient Tobacco Use Status: Current everyday Tobacco user Tobacco use type: Cigarette Cigarettes Per Day: 10 e-Cigarette/Vaping Use: Never Used service: No Current occupational status: employed 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 [place] Cognitive needs: No Hearing needs: No Vision needs: Yes Review of Systems Const Denies chills and Denies fever(s) Card Denies chest pain, Denies dyspnea and Denies dyspnea on exertion Resp Denies cough, Denies dyspnea and Denies dyspnea on exertion GI Denies hematochezia and Denies change in bowel habits Denies hematuria Musc Denies back pain and Denies limited range of motion Neuro Denies focal weakness and Denies convulsions Psych Denies depression and Denies mood swings Physical Exam Vital Signs: BMI result Body Mass Index 25.1 Const General: comfortable and no acute distress Chest Other: No palpable breast masses, no nipple or skin changes Resp Effort & Inspection: normal respiratory effort GI Palpation (GI): Soft to palpation and nontender Assessment & Plan Assessment & Plan (1) Abnormal mammogram of both breasts: Code(s): R92.8 - Other abnormal and inconclusive findings on diagnostic imaging of breast Category: Medical Plan: I had sent her for an MRI because of abnormal findings under mammograms before. Her right breast shows enhancing masses at approximately the 12 o'clock position and at 9 o'clock position which likely represents currently enhancement. As per report, this is probably benign and a six-month follow-up MRI has been recommended. On the left breast, there were no MR specific evidence of malignancy. In view of this latest MRI findings, we will hold off on doing excision for a previous finding of an intraductal papilloma on the left breast. I will schedule her for a mammogram in 6 months. I will see her in the office at that time as well She is comfortable with the plan above and she understands this well. Coding Level of Care Code Est Pt Level 3 (96430) Diagnoses Abnormal mammogram of both breasts R92.8
[2025-07-28 09:23] VITALS: BMI 25.1
--- OUTSIDE RECORDS SUMMARY | 2025-07-28 10:18 | XMS_ITS | Clinical Summary ---
Author Organization [facility] Address [address] [place] [phone] Phone Care Team Providers Care Publication Designer Name Role Phone Mary Ann Lynch MD Primary Care Provider [phone] Allergies No known active allergies Medications furosemide (LASIX) 20 MG tablet Take 1 tablet by mouth every morning. Active varenicline tartrate (CHANTIX) 1 mg tablet Take 1 tablet by mouth 2 (two) times a day. Active varenicline tartrate (CHANTIX IRA) 0.5 mg (11)- 1 mg (42) tablet TAKE TABLETS BY MOUTH PER PACKAGE DIRECTIONS Active magnesium 250 mg Tab Take by mouth. Activ e omega 3-dnd-fop-fish oil 1,000 (120-180) mg Cap Take 1 capsule by mouth daily. Active black cohosh 200 mg Cap Take by mouth. Acti ve cholecalciferol (VITAMIN D3) 25 MCG (1,000 unit) tablet Take 1,000 Units by mouth daily. Active Active Problems No known active problems Encounters Date Type Department Care Team Description 07/18/2025 Telephone [facility] [address] [place] [address] [place] [address] Carlitos Romo MD 07/15/2025 4:23 PM EST - 07/15/2025 11:59 PM EST Hospital En[facility] [address] [place] [address] Carlitos Romo MD Discharge Disposition: Home or Self Care 07/07/2025 4:10 PM EST Office [facility] [address] [place] [address] [place] [address] Carlitos Romo MD Encounter for annual routine [...] Care Team (Late st Contact Info) Description 08/23/2025 4:40 PM EST Appointment [facility] [place], [address] [place] [address] Carlitos Romo MD [address] [place] [address], [address] [place] [address] Health Maintenance Due Date Last Done Comments [...] INFLUENZA VACCINE (#1) 2025 06/06/2022 COVID-19 VACCINE (2024- season) 2025 06/13/2022, 03/13/2022, 10/29/2021, Additional history [...] this topic Medical Devices Not on file Procedures Procedure Name Priority Date/Time Associated Diagnosis Comments US PELVIS TRANSABDOMINAL PLUS TRANSVAGINAL Routine 07/15/2025 5:07 PM EST Uterine leiomyoma, unspecified location from Last 3 Months Results * US PELVIS TRANSABDOMINAL PLUS TRANSVAGINAL (07/15/2025 5:07 PM EST) Anatomical Region Laterality Modality Pelvis, Uterus/Adnexa Ultrasound 07/15/2025 5:08 PM EST Impressions 07/15/2025 5:35 PM EST 1. Heterogeneous uterus with least 1 large mass consistent with a fibroid as described above. It is very heterogeneous in appearance. 2. The endometrium measures 6.8 mm and appears grossly normal without focal masses. 3. The right ovary appears grossly normal. The left ovary contains a 4.6 cm cystic and solid structure with some peripheral vascularity and some low-level internal echoes. This could potentially represent a hemorrhagic cyst. However, recommend repeat exam in 6 to 8 weeks to assess for stability. 4. There is a small to moderate amount of free fluid. Narrative 07/15/2025 5:35 PM EST Procedure: US PELVIS TRANSABDOMINAL AND TRANSVAGINAL 07/15/2025 4:25 PM US Indications: Uterine fibroid suspected. Comparison: No relevant recent comparisons. Technique: Transabdominal sonography of the pelvis was performed. In addition, transvaginal imaging was performed to better evaluate the adnexae and ovaries. Color Doppler imaging was performed to assess vascularity. 3-D images were acquired and evaluated during image interpretation. Reported LMP: 06/30/2025 FINDINGS: Uterus: The uterus measurements acquired; 8.46 cm x 6.62 cm x 8.20 cm with volume of 240.46 ml. The uterus is anteverted in its positioning. The myometrium is heterogeneous with one mass suggestive of a fibroid. Fibroid 1: 5.43 x 4.74 x 5.03 cm. Left lateral fundal. Endometrium: The endometrium measures 0.68 cm and appears grossly normal. No focal endometrial masses seen. No fluid is identified within the endometrial canal. No focal cervical masses. Ovaries: The right ovary measures 2.26 cm x 2.34 cm x 1.32 cm with volume of 3.66 ml. Appears grossly normal Right Adnexa: No masses seen. The left ovary measures 4.62 cm x 3.92 cm x 2.78 cm with volume of 26.36 ml. There is a heterogeneous, avascular structure with both cystic and solid components, measuring 4.58 x 2.46 x 3.37 cm. Hemorrhagic cyst vs other pathology. Left Adnexa: No masses seen. Cul de Sac: There is a moderate amount of free pelvic fluid. Tech Comments: Procedure Note Carlitos Romo MD - 07/15/2025 Procedure: US PELVIS TRANSABDOMINAL AND TRANSVAGINAL 07/15/2025 4:25 PM US Indications: Uterine fibroid suspected. Comparison: No relevant recent comparisons. Technique: Transabdominal sonography of the pelvis was performed. Inaddition, transvaginal imaging was performed to better evaluate theadnexae and ovaries. Color Doppler imaging was performed to assessvascularity. 3-D images were acquired and evaluated during imageinterpretation. Reported LMP: 06/30/2025 FINDINGS: Uterus: The uterus measurements acquired; 8.46 cm x 6.62 cm x 8.20 cm with volumeof 240.46 ml. The uterus is anteverted in its positioning. Themyometrium is heterogeneous with one mass suggestive of a fibroid. Fibroid 1: 5.43 x 4.74 x 5.03 cm. Left lateral fundal. Endometrium: The endometrium measures 0.68 cm and appears grossly normal. No focalendometrial masses seen. No fluid is identified within the endometrialcanal. No focal cervical masses. Ovaries: The right ovary measures 2.26 cm x 2.34 cm x 1.32 cm with volume of 3.66ml. Appears grossly normal Right Adnexa: No masses seen. The left ovary measures 4.62 cm x 3.92 cm x 2.78 cm with volume of 26.36ml. There is a heterogeneous, avascular structure with both cystic and solidcomponents, measuring 4.58 x 2.46 x 3.37 cm. Hemorrhagic cyst vs otherpathology. Left Adnexa: No masses seen. Cul de Sac: There is a moderate amount of free pelvic fluid. Tech Comments: IMPRESSION: 1. Heterogeneous uterus with least 1 large mass consistent with a fibroidas described above. It is very heterogeneous in appearance. 2. The endometrium measures 6.8 mm and appears grossly normal withoutfocal masses. 3. The right ovary appears grossly normal. The left ovary contains a 4.6cm cystic and solid structure with some peripheral vascularity and somelow-level internal echoes. This could potentially represent a hemorrhagiccyst. However, recommend repeat exam in 6 to 8 weeks to assess forstability. 4. There is a small to moderate amount of free fluid. Carlitos Romo MD [facility] PELVIS Final Result from Last 3 Months Insurance BLUE [employer]OSS OUT OF STATE PPO [employer] OUT OF STATE PPO BL[employer] OUT OF STATE PPO [facility] STATE PPO Care Teams Publication Designer Relationship Specialty Start Date End Date Mary Ann Lynch MD [address] [place] [address] PCP - General Internal Medicine 05/20/25 Additional Source Comments The information contained in this document represents components of the legal health record. It is not the complete legal health record.[facility]
== END 2025-07-28 09:32 | disposition home or self-care (01) ==
LOC: HO.HGS 09:17
PROVIDERS: PCP Internal Medicine; Visit Provider Surgery
DX: R92.8 Other abnormal and inconclusive findings on diagnostic imaging of breast (principal)
CPT/HCPCS: 99213